=== PATIENT | male | born 1935 | race Caucasian/White ===

== ENCOUNTER 2016-09-11 11:46 | Inpatient (IN) | payer OTHER ==
[~2016-09-11] VITALS: Ht 170.2 cm; Wt 65.3 kg
--- NOTE | ~2016-09-11 | EKG ---
[address] [place] [address] ELECTROCARDIOGRAM REPORT Name: MIRIAM GAMING Room #: 444-P ADM IN M.R.#: [id number] Admission: 09/11/16 Attend Phys: Garret Marin MD Discharge: Date of : 33 Report #: [id number] THIS REPORT FOR: //name// [facility] ED Test Date: 2016-09-11 Test Time: 12:25:47 Pat Name: MIRIAM GAMING Department: Room: 444 Gender: M Lead Technical Writer: Vanessa LANDRUM : 1935 Requested By: Nathan Van Order Number: [id number] MD: Aj Johnston Measurements Intervals [place] Rate: 90 P: 78 [place]: 167 QRS: -62 QRSD: 94 T: 84 QT: 339 QTc: 415 Interpretive Statements Sinus rhythm Inferior infarct, old Anterior infarct, old Compared to ECG 04/28/2015 20:51:04 Myocardial infarct finding now present Atrial fibrillation no longer present Electronically Signed On 09-12-2016 9:25:48 CDT by Aj Johnston [email or web address] <ELECTRONICALLY SIGNED> By: Aj Johnston MD, [facility] 09/12/16 0925 1225 1225 Aj Johnston MD, [facility] /EPI
--- NOTE | ~2016-09-11 | HC ---
[facility] [place] [address] CONSULTATION Name: MIRIAM GAMING Room #: 444-P ADM IN M.R.#: [id number] Admission: 09/11/16 Attend Phys: Garret Marin MD Discharge: Date of : 33 Report #: [id number] THIS REPORT FOR: //name// CC: Galileo Khan MD DATE OF SERVICE: 09/14/2016 TYPE OF REPORT: Pulmonary consultation. REFERRING PROVIDER: Galileo Samano M.D. REASON FOR CONSULTATION: Shortness of breath and COPD exacerbation. HISTORY OF PRESENT ILLNESS: Our group was asked to see the patient in consultation while hospitalized at [facility], a very pleasant 81-year-old male with a past pulmonary history significant for COPD. FEV1 most recently done in September of 2015 was 1.11 liters or 46% of predicted, also requiring supplemental oxygen. Had been having some increasing shortness of breath since a stent placed recently, exact location is unclear to me at this time. Denies any chest pain or palpitation but has some increasing cough with some sputum production. No fevers, chills or sweats. Because of increased symptoms, he presented to the emergency department 3 days ago and subsequently admitted for acute exacerbation of COPD and has had subsequently required 2-3 liters nasal cannula continuous airflow with some difficulty ambulating even short distance without becoming significantly short of breath, is on continued airway clearance therapy at this time. ALLERGIES: Include CITRUS, WATERMELON, TOMATO, NUTS, CANTALOUPE, LEVAQUIN and STATINS. PAST MEDICAL HISTORY: 1. COPD as described in HPI. 2. Atherosclerotic peripheral vascular disease and multiple stent placement including aortic and iliac stents and carotid stents. 3. History of pulmonary nodule status post wedge resection in August of 2008 and benign granuloma. 4. Hypertension. 5. Hyperlipidemia. 6. History of allergic rhinitis. OUTPATIENT MEDICATIONS: 1. Multivitamin. [facility] [address] [place] [address] CONSULTATION Name: MIRIAM GAMING Room #: 444-[facility] IN [facility].#: [id number] Admission: 09/11/16 Attend Phys: Garret Marin MD Discharge: Date of : 33 Report #: [id number] 2. Bystolic. 3. Diltiazem. 4. Xarelto. 5. Advair. 6. Spiriva. 7. ProAir. SOCIAL HISTORY: The patient is currently retired, ex-smoker. No significant alcohol consumption. FAMILY HISTORY: Significant for father had cancer and mother had colon cancer. REVIEW OF SYSTEMS: CONSTITUTIONAL: No fevers, chills or sweats. ENT: No upper respiratory congestion, rhinorrhea or dysphagia. CARDIOVASCULAR: Notes no significant chest pain or palpitations. Does have a history of peripheral vascular disease. GASTROINTESTINAL: No nausea, vomiting, diarrhea or constipation. Has some mild abdominal pain. GENITOURINARY: No dysuria. No frequency. INTEGUMENT: Denies any new rash. MUSCULOSKELETAL: Some recent claudication noted prior to stent placement. PHYSICAL EXAMINATION: VITAL SIGNS: Afebrile, pulse 80s, respiratory rate 20, blood pressure 145/65 and oxygen saturation 94% on 2 liters. GENERAL: This is a very pleasant elderly male, hard of hearing but no distress. ENT: Clear oropharynx. No thrush. NECK: Supple. No lymphadenopathy. LUNGS: Diminished with prolonged expiratory phase, diffuse expiratory wheezes noted throughout. CARDIOVASCULAR: Heart regular. No murmurs noted. ABDOMEN: Soft. Mild suprapubic tenderness noted. EXTREMITIES: Without edema. They are warm with slightly diminished pulses. LABORATORY DATA: White blood cell count 11,000; hemoglobin 13; hematocrit 39 and platelet count 194. Sodium 141, potassium 3.7, chloride 107, bicarbonate 26, BUN 16, creatinine 1.0 and glucose 180. INR 1.0. RADIOLOGICAL DATA: Chest x-ray revealed hyperinflation consistent with COPD and emphysema, significant findings of bolus emphysema. Recent CT scan of the chest PE protocol revealed no PE, significant pulmonary embolism noted, some mild patchy ground glass changes suggestive of an inflammatory process noted. Cultures are negative. IMPRESSION: [facility] [address] [place] [address] CONSULTATION Name: MIRIAM GAMING Room #: 444-P ADM IN M.R.#: [id number] Admission: 09/11/16 Attend Phys: Garret Marin MD Discharge: Date of : 33 Report #: [id number] 1. Acute exacerbation of chronic obstructive pulmonary disease. 2. Ijppu-yt-lwojlih hypoxemic respiratory failure. 3. Pulmonary infiltrates consistent with community-acquired pneumonia. SUGGESTIONS: 1. Continue with airway clearance. The patient is obviously having some difficulty clearing secretions from his airway, likely due to thick secretions. We will change guaifenesin from p.r.n. to scheduled twice daily. 2. Continue with DuoNeb q. 4 hours. 3. Systemic steroids with taper. 4. Mobilize as able. 5. Continue with flutter valve, consider adding additional airway clearance including IPV. 6. Continue with current antibiotic therapy and we would consider deescalating. 7. Additional recommendations to follow. Thank you for requesting our suggestions. By: 1656 1802 Christopher Gill MD /ebony
[~2016-09-11 11:46] MED LIST: ADULT LOW DOSE81 MG PO; ADVAIR 250-501 EACH INH; ADVAIRDISKUS; AMLODIPINE BESY10 MG PO; AUGMENTIN 875-1 EACH PO; BYSTOLIC 5 MG5 M1 PO; CARDIZEM CD120 MG PO; COLACE100 MG PO; DAILY VITAMIN1 EAC5 PO; LEVAQUIN 500 M500 M2 PO; LIPITOR20 MG PO; MUCINEX TA600 MG/TA2 PO; NORVASC10 MG PO; NYSTATIN 1100000 U/M SW&SWALLOW; PACERONE 200 M200 M1 PO; PLAVIX 75 MG TA75 MG PO; PREDNISONE 10 M10 MG; PREDNISONE 10 M10 MG PO; PREDNISONE 20 M20 MG PO; PROAIR HFA8.5 GM INH; PROVENTIL HFA6.7 G1 INH; SPIRIVA INH; TYLENOL325 MG PO; XARELTO15 MG PO; ZOCOR PO
[2016-09-11 11:50] VITALS: BP 140/83
[2016-09-11 12:28] LABS: HEMATOCRIT 46.5 % (42.0-52.0); HEMOGLOBIN 15.5 gm/dL (14.0-18.0); MCH 31.4 pg (26.0-34.0); MCHC 33.4 g/dL (28.0-37.0); MCV 94.1 fL (80.0-100.0); RBC 4.93 mil/uL (4.50-6.00); WBC 11.6 thou/uL (4.0-11.0)
[2016-09-11 12:47] LABS: ANION GAP 11 mmol/L (7-16); BUN 14 mg/dL (7-18); CALCIUM 8.7 mg/dL (8.5-10.1); CHLORIDE 101 mmol/L (98-107); CO2 23 mmol/L (21-32); CREATININE 0.9 mg/dL (0.7-1.3); GLUCOSE 106 mg/dL (74-106); MANUAL DIFF YES; SODIUM 135 mmol/L (136-145)
[2016-09-11 12:52] LABS: ALBUMIN 3.5 g/dL (3.4-5.0); ALKALINE PHOSPHATASE 118 U/L (46-116); NT-PRO BRAIN NAT PEPTIDE 262 pg/mL (<300); SGOT 32 U/L (15-37); SGPT 21 U/L (30-65); TOTAL PROTEIN 7.8 g/dL (6.4-8.2); TROPONIN-I < 0.04 ng/mL (<0.04-0.07)
[2016-09-11 13:53] LABS: ABSOLUTE NEUTROPHILS 9.7 thou/uL (1.4-8.2); TOTAL CELL COUNT 100
[2016-09-11 13:59] LABS: PLATELET COUNT 66 thou/uL (150-400)
[2016-09-11] MEDS ORDERED: BREO ELLIPTA 21 EACH IH (15:55)
[2016-09-11 16:30] VITALS: BP 132/70
[2016-09-11 17:23] VITALS: BP 146/74
[2016-09-11 18:43] LABS: INR 1.1; PROTIME 11.5 Seconds (9.3-11.4)
[2016-09-11 19:55] VITALS: BP 124/64
[2016-09-12 04:10] VITALS: BP 138/74
[2016-09-12 04:15] LABS: HEMATOCRIT 39.8 % (42.0-52.0); HEMOGLOBIN 13.9 gm/dL (14.0-18.0); MCH 32.1 pg (26.0-34.0); MCHC 34.9 g/dL (28.0-37.0); RBC 4.32 mil/uL (4.50-6.00); RDW 13.9 % (10.5-14.5); WBC 10.1 thou/uL (4.0-11.0)
[2016-09-12 04:29] LABS: CALCIUM 8.5 mg/dL (8.5-10.1); CREATININE 0.8 mg/dL (0.7-1.3)
[2016-09-12 04:32] LABS: POTASSIUM 3.7 mmol/L (3.5-5.1)
[2016-09-12 08:00] VITALS: BP 142/75
[2016-09-12 16:00] VITALS: BP 129/60
[2016-09-12 20:00] VITALS: BP 123/68
[2016-09-13 04:10] VITALS: BP 131/58
[2016-09-13 08:00] VITALS: BP 132/55
[2016-09-13 16:00] VITALS: BP 127/62
[2016-09-13 20:27] VITALS: BP 117/55
[2016-09-14 03:40] VITALS: BP 142/57
[2016-09-14 08:00] VITALS: BP 145/65
[2016-09-14 11:32] LABS: HEMATOCRIT 38.6 % (42.0-52.0); HEMOGLOBIN 12.7 gm/dL (14.0-18.0); MCH 30.9 pg (26.0-34.0); MCHC 32.9 g/dL (28.0-37.0); MCV 93.9 fL (80.0-100.0); RBC 4.11 mil/uL (4.50-6.00); RDW 14.2 % (10.5-14.5); WBC 11.2 thou/uL (4.0-11.0)
[2016-09-14 11:56] LABS: CALCIUM 8.3 mg/dL (8.5-10.1); POTASSIUM 3.7 mmol/L (3.5-5.1)
[2016-09-14 19:15] VITALS: BP 147/65
[2016-09-15 04:10] VITALS: BP 155/71
[2016-09-15 08:34] VITALS: BP 175/79
[2016-09-15 15:42] VITALS: BP 149/74
[2016-09-15 19:30] VITALS: BP 145/60
[2016-09-16 04:20] VITALS: BP 151/76
[2016-09-16 08:00] VITALS: BP 147/92
[2016-09-16 11:19] LABS: ANION GAP 8 mmol/L (7-16); BUN 19 mg/dL (7-18); CALCIUM 8.4 mg/dL (8.5-10.1); CHLORIDE 103 mmol/L (98-107); CO2 29 mmol/L (21-32); CREATININE 0.9 mg/dL (0.7-1.3); GLUCOSE 166 mg/dL (74-106); POTASSIUM 3.8 mmol/L (3.5-5.1); SODIUM 140 mmol/L (136-145); TROPONIN-I < 0.04 ng/mL (<0.04-0.07)
[2016-09-16 16:16] VITALS: BP 144/71
[2016-09-16 19:23] VITALS: BP 159/7
[2016-09-17 05:06] VITALS: BP 160/86
[2016-09-17 09:35] VITALS: BP 149/81
[2016-09-17 16:17] VITALS: BP 139/67
[2016-09-17 20:02] VITALS: BP 148/76
[2016-09-18 04:57] VITALS: BP 157/69
[2016-09-18 08:30] VITALS: BP 145/80
[2016-09-18 11:06] VITALS: BP 157/69
[2016-09-18] MEDS ORDERED: AUGMENTIN 500-1 EACH PO (13:20)
[2016-09-18] MEDS ORDERED: PREDNISONE10 MG PO (13:22)
== END 2016-09-18 15:45 | disposition home or self-care (01) | DRG 177 ==
LOC: ER 11:46 → 4S 15:56 → EROBS 15:56 → 4S 16:55
PROVIDERS: Hospitalist; Internal Medicine; Physician Assistant
DX: J69.0 Pneumonitis due to inhalation of food and vomit (principal); J96.21 Acute and chronic respiratory failure with hypoxia; J44.1 Chronic obstructive pulmonary disease with (acute) exacerbation; Z96.1 Presence of intraocular lens; I48.0 Paroxysmal atrial fibrillation; I50.9 Heart failure, unspecified; I10 Essential (primary) hypertension; I73.9 Peripheral vascular disease, unspecified; E78.5 Hyperlipidemia, unspecified; Z98.42 Cataract extraction status, left eye; Z98.41 Cataract extraction status, right eye; Z95.5 Presence of coronary angioplasty implant and graft; Z79.899 Other long term (current) drug therapy; Z88.8 Allergy status to other drugs, medicaments and biological substances; Z91.018 Allergy to other foods; Z80.0 Family history of malignant neoplasm of digestive organs; Z87.891 Personal history of nicotine dependence
CPT/HCPCS: 10100

== ENCOUNTER 2016-11-09 08:45 | Emergency (ER) | payer OTHER ==
[~2016-11-09] VITALS: Ht 177.8 cm; Wt 68.0 kg
--- NOTE | ~2016-11-09 | EKG ---
[place] [address] [place] [address] ELECTROCARDIOGRAM REPORT Name: MIRIAM GAMING [id number] Admission: 11/09/16 Attend Phys: Discharge: Date of : 33 Report #: [id number] THIS REPORT FOR: //name// [facility] ED Test Date: 2016-11-09 Test Time: 09:07:22 Pat Name: MIRIAM GAMING Department: Room: Gender: Curator Of Collections: RUST : 1935 Requested By: Franci Jacobs Order Number: [id number] MD: Francisco Javier Mcgee Measurements Intervals [place] Rate: 67 P: 72 [place]: 164 QRS: -36 QRSD: 96 T: 65 QT: 423 QTc: 447 Interpretive Statements Sinus rhythm Anterior infarct, old Compared to ECG 09/11/2016 12:25:47 No significant changes Electronically Signed On 11-09-2016 11:02:08 CDT by Francisco Javier Mcgee [email or web address] <ELECTRONICALLY SIGNED> By: Francisco Javier Mcgee MD 11/09/16 1102 0907 6 Francisco Javier Mcgee MD /JANICE
[~2016-11-09 08:45] MED LIST changes: +AUGMENTIN 500-1 EACH PO; +BREO ELLIPTA 21 EACH IH; +PREDNISONE10 MG PO
[2016-11-09 09:40] LABS: ABSOLUTE NEUTROPHILS 5.6 thou/uL (1.4-8.2); BASOPHILS 0.8 % (0.0-2.0); EOSINOPHILS 2.6 % (0.0-3.0); HEMATOCRIT 43.1 % (42.0-52.0); HEMOGLOBIN 14.6 gm/dL (14.0-18.0); LYMPHOCYTES 21.5 % (24.0-44.0); MONOCYTES 7.2 % (1.0-8.0); PLATELET COUNT 223 thou/uL (150-400); POLYS 67.9 % (36.0-66.0); RBC 4.58 mil/uL (4.50-6.00); RDW 13.9 % (10.5-14.5); WBC 8.2 thou/uL (4.0-11.0)
[2016-11-09 09:49] LABS: MANUAL DIFF NO
[2016-11-09 09:53] LABS: ANION GAP 9 mmol/L (7-16); BUN 10 mg/dL (7-18); CALCIUM 8.7 mg/dL (8.5-10.1); CHLORIDE 106 mmol/L (98-107); CO2 27 mmol/L (21-32); CREATININE 0.9 mg/dL (0.7-1.3); GLUCOSE 105 mg/dL (74-106); POTASSIUM 4.3 mmol/L (3.5-5.1); SODIUM 142 mmol/L (136-145)
[2016-11-09 10:02] LABS: INR 1.1; PROTIME 10.8 Seconds (9.3-11.4)
[2016-11-09 10:03] LABS: ALBUMIN 3.4 g/dL (3.4-5.0); ALKALINE PHOSPHATASE 119 U/L (46-116); SGOT 17 U/L (15-37); SGPT 19 U/L (30-65); TOTAL BILIRUBIN 0.5 mg/dL (<0.1-1.0); TROPONIN-I < 0.04 ng/mL (<0.04-0.07)
[2016-11-09] MEDS ORDERED: PREDNISONE 20 M20 MG PO (11:32)
== END 2016-11-09 11:43 | disposition home or self-care (01) ==
LOC: ER 08:45
PROVIDERS: Physician Assistant
DX: J44.1 Chronic obstructive pulmonary disease with (acute) exacerbation (principal); I11.0 Hypertensive heart disease with heart failure; I50.9 Heart failure, unspecified; I48.0 Paroxysmal atrial fibrillation; Z88.8 Allergy status to other drugs, medicaments and biological substances; Z91.018 Allergy to other foods

== ENCOUNTER 2017-02-06 07:53 | Inpatient (IN) | payer OTHER ==
[~2017-02-06] VITALS: Ht 172.7 cm; Wt 66.2 kg
[2017-02-06] VITALS (7 sets, daily range): BP systolic 136–174; BP diastolic 67–88
--- NOTE | ~2017-02-06 | HC ---
[facility] [place] [address] CONSULTATION Name: MIRIAM GAMING Room #: 434-P [facility] IN M.R.#: [id number] Admission: 02/06/17 Attend Phys: Ramin Rodriguez Discharge: Date of : 33 Report #: [id number] THIS REPORT FOR: //name// CC: Ramin Matias DATE OF SERVICE: 02/10/2017 HISTORY OF PRESENT ILLNESS: The patient is an 82-year-old white male who was admitted with worsening shortness of breath. He has a prior history of asthma. He was diagnosed with qdjyf-vj-nmdjdgd respiratory failure, exacerbation of chronic obstructive pulmonary disease. Noted to have a rhinovirus. Per discussion with Pulmonary Medicine, he remains quite tight and is needing assistance with basic functional mobility and we are seeing him in rehabilitation medicine consultation. PAST MEDICAL HISTORY: Includes COPD, history of peripheral arterial disease, atrial fibrillation. He has had a prior right thoracotomy for resection of a lung mass 08/28. Apparently noted to be granuloma. History of atrial fibrillation, congestive heart failure. ALLERGIES: Cantaloupe citrus and derivatives, nuts, watermelon, tomato. MEDICATIONS: Please see the full medication listing. HABITS: Former smoker, quit greater than a year ago. No history of alcohol abuse. SOCIAL HISTORY: Lives in a house with his and son, 2-3 steps in, who was on 3 liters nasal prong O2. Did not utilize gait aids. He was going for outpatient pulmonary rehabilitation. REVIEW OF SYSTEMS: Notes that he remains tight as far as his lungs. No current complaints of chest pain or abdominal discomfort. No focal extremity pain complaints. PHYSICAL EXAMINATION: GENERAL: An 82-year-old white male, pleasant, in no obvious distress, currently on 3 liters nasal prong O2. Facies are symmetric. He is alert, pleasant, oriented. HEENT: Appeared to be benign. Cranial nerves are grossly intact. EXTREMITIES: He has functional range of motion of both upper extremities with strength grade 4/5. DTRs are trace to 1. Lower extremities, no focal calf swelling, functional range of motion with strength grade 4-/5. DTRs are trace to 1. Lower extremity dressing is min assist. Toilet transfers are supervision. Bathing is min assist. He becomes severely short of breath with [facility] [address] [place] [address] CONSULTATION Name: MIRIAM GAMING Room #: [facility] IN .R.#: [id number] Admission: 02/06/17 Attend Phys: Ramin Rodriguez Discharge: Date of : 33 Report #: [id number] attempted limited ADLs. ASSESSMENT: An 82-year-old white male with the following problem list: 1. Pulmonary rehabilitation. 2. Medical complexity with generalized debilitation. 3. Wzgig-is-nohjszq respiratory failure. 4. Chronic obstructive pulmonary disease exacerbation. 5. Acute bronchitis. 6. Asthma. 7. History of right thoracotomy with wedge resection of a lung mass noted to be a granuloma. 8. Peripheral arterial disease. 9. History of congestive heart failure. 10. Paroxysmal atrial fibrillation. PLAN: Discussion with Pulmonary Medicine. They have recommended that we assess this patient for a short acute in-hospital inpatient rehabilitation stay. He still has significant tightness. From a pulmonary perspective and is needing assistance with basic functional mobility and ADLs and is very limited as far as his functional abilities and need for rest breaks. Physical therapy is to evaluate and he has already been seen by occupational therapy. Insurance will be checked regarding a short acute in-hospital inpatient rehabilitation stay. Would anticipate a short stay of probably 5-7 days where he could obtain the rehabilitation that he needs and Pulmonary Medicine could continue to follow along with him to help further maximize his recovery. We will be glad to follow along with you regarding his rehab therapy needs. By: 1115 1213 Kan Jerez MD /ZAC
--- NOTE | ~2017-02-06 | EKG ---
[place] [address] [facility] [place] [address] ELECTROCARDIOGRAM REPORT Name: MIRIAM GAMING Room #: 434-P ADM IN M.R.#: [id number] Admission: 02/06/17 Attend Phys: Ramin Rodriguez Discharge: Date of : 33 Report #: [id number] THIS REPORT FOR: //name// [facility] ED Test Date: 2017-02-06 Test Time: 08:17:09 Pat Name: MIRIAM GAMING Department: Room: 434 Gender: M Air Compressor Mechanic: jose : 1935 Requested By: Leroy Gonzalez Order Number: [id number] MD: Aj Johnston Measurements Intervals [place] Rate: 86 P: 83 [place]: 172 QRS: -74 QRSD: 93 T: 87 QT: 369 QTc: 442 Interpretive Statements Sinus rhythm Left anterior fascicular block Anterior infarct, old Nonspecific T abnormalities, lateral leads Compared to ECG 11/09/2016 09:07:22 Left anterior fascicular block now present Electronically Signed On 02-07-2017 8:23:53 GAMING SURVEILLANCE OBSERVER by Aj Johnston [email or web address] <ELECTRONICALLY SIGNED> By: Aj Johnston MD, [facility] 02/07/1723 6 6 Aj Johnston MD, [facility] /EPI
--- NOTE | ~2017-02-06 | EKG ---
[place] [address] [facility] [place] [address] ELECTROCARDIOGRAM REPORT Name: MIRIAM GAMING Room #: 434-P ADM IN M.R.#: [id number] Admission: 02/06/17 Attend Phys: Ramin Rodriguez Discharge: Date of : 33 Report #: [id number] THIS REPORT FOR: //name// [facility] Test Date: 2017-02-10 Test Time: 09:13:10 Pat Name: MIRIAM GAMING Department: Room: 434 P Gender: M Nurse Anesthetist: DEWAYNE : 1935 Requested By: Ivan Polanco Order Number: [id number] MD: Aj Johnston Measurements Intervals [place] Rate: 77 P: 82 [place]: 165 QRS: -37 QRSD: 92 T: 50 QT: 414 QTc: 469 Interpretive Statements Sinus rhythm Ventricular premature complex Left axis deviation Anterior infarct, old Compared to ECG 02/06/2017 08:17:09 Ventricular premature complex(es) now present Electronically Signed On 02-10-2017 14:28:47 VEHICLE RETURN ASSOCIATE by Aj Johnston [email or web address] <ELECTRONICALLY SIGNED> By: Aj Johnston MD, [facility] 02/10/17 1428 2 Aj Johnston MD, [facility] /EPI
[2017-02-06 08:14] LABS: HEMATOCRIT 49.7 % (42.0-52.0); HEMOGLOBIN 16.6 gm/dL (14.0-18.0); MCH 30.9 pg (26.0-34.0); MCHC 33.5 g/dL (28.0-37.0); MCV 92.5 fL (80.0-100.0); RBC 5.37 mil/uL (4.50-6.00); RDW 14.2 % (10.5-14.5); WBC 10.1 thou/uL (4.0-11.0)
[2017-02-06 08:21] LABS: ANION GAP 9 mmol/L (7-16); BUN 12 mg/dL (7-18); CALCIUM 9.1 mg/dL (8.5-10.1); CHLORIDE 105 mmol/L (98-107); CO2 28 mmol/L (21-32); CREATININE 0.9 mg/dL (0.7-1.3); GLUCOSE 133 mg/dL (74-106); POTASSIUM 4.4 mmol/L (3.5-5.1); SODIUM 142 mmol/L (136-145)
[2017-02-06 08:29] LABS: TROPONIN-I < 0.04 ng/mL (<0.06)
[2017-02-06 11:15] LABS: ABG SAMPLE TYPE ARTERIAL; BE(vivo) 0.1 mmol/L (-2 to +3); HCO3 24.7 mmol/L (22.0-26.0); LACTATE 1.32 mmol/L (0.5-2.0); O2Hb 96.1 % (92.0-98.0); PCO2 40.1 mmHg (35.0-45.0); PO2 93.6 mmHg (80.0-100.0); pH 7.407 (7.360-7.450); sO2 97.2 % (92.0-98.0); tCO2 25.9 mmol/L (24.0-30.0)
[2017-02-06 11:16] LABS: ABG COMMENT NO COMPLICATIONS; STICK SITE R.RADIAL
[2017-02-07 00:46] VITALS: BP 148/80
[2017-02-07 06:18] VITALS: BP 166/79
[2017-02-07 08:00] VITALS: BP 163/77
[2017-02-07 16:00] VITALS: BP 134/59
[2017-02-07 20:11] VITALS: BP 147/71
[2017-02-08 03:32] VITALS: BP 146/67
[2017-02-08 07:49] VITALS: BP 159/79
[2017-02-08 16:09] VITALS: BP 144/68
[2017-02-08 21:00] VITALS: BP 171/67
[2017-02-09 01:11] LABS: INFLUENZA B Negative (Negative); METAPNEUMOVIRUS Negative (Negative)
[2017-02-09 04:27] VITALS: BP 154/67
[2017-02-09 08:09] VITALS: BP 171/73
[2017-02-09 15:55] VITALS: BP 144/68
[2017-02-09 20:00] VITALS: BP 154/83
[2017-02-10 05:05] VITALS: BP 180/94
[2017-02-10 07:00] VITALS: BP 182/97
[2017-02-10 15:57] LABS: HEMATOCRIT 45.4 % (42.0-52.0); HEMOGLOBIN 15.4 gm/dL (14.0-18.0); MCHC 33.9 g/dL (28.0-37.0); MCV 91.3 fL (80.0-100.0); RBC 4.98 mil/uL (4.50-6.00); RDW 14.4 % (10.5-14.5); WBC 10.3 thou/uL (4.0-11.0)
[2017-02-10 16:13] LABS: CALCIUM 8.6 mg/dL (8.5-10.1); CREATININE 0.9 mg/dL (0.7-1.3); POTASSIUM 3.7 mmol/L (3.5-5.1); TOTAL BILIRUBIN 0.4 mg/dL (<0.1-1.0); TOTAL PROTEIN 6.4 g/dL (6.4-8.2)
[2017-02-10 16:40] VITALS: BP 150/68
[2017-02-10 19:27] VITALS: BP 160/77
[2017-02-11 04:08] VITALS: BP 171/74
[2017-02-11 07:05] VITALS: BP 170/76
[2017-02-11] MEDS ORDERED: LEVAQUIN 500 M500 M2 PO (15:24)
[2017-02-11] MEDS ORDERED: ACETAMINOPHEN325 M1 PO (15:25)
[2017-02-11] MEDS ORDERED: CARDIZEM CD 18180 M3 PO (15:25)
[2017-02-11] MEDS ORDERED: HYDROCODON-ACE1 EAC7 PO (15:25)
[2017-02-11] MEDS ORDERED: AMBIEN 5 MG TABL5 M1 PO (15:26)
[2017-02-11] MEDS ORDERED: PULMICORT0.5 MG/21 INH (15:26)
[2017-02-11] MEDS ORDERED: SOLU-MEDRO40 MG/1 M2 IV PUSH (15:26)
[2017-02-11 15:30] VITALS: BP 138/60
[2017-02-11 19:59] VITALS: BP 176/91
== END 2017-02-11 18:59 | DRG 871 ==
LOC: ER 07:53 → 4S 08:31 → EROBS 08:31 → 4S 09:46
PROVIDERS: Emergency Medicine; Internal Medicine Pulmonary Disease
DX: A41.9 Sepsis, unspecified organism (principal); J96.21 Acute and chronic respiratory failure with hypoxia; J44.1 Chronic obstructive pulmonary disease with (acute) exacerbation; I50.9 Heart failure, unspecified; I48.0 Paroxysmal atrial fibrillation; I73.9 Peripheral vascular disease, unspecified; I11.0 Hypertensive heart disease with heart failure; J20.9 Acute bronchitis, unspecified; B34.8 Other viral infections of unspecified site; Z98.42 Cataract extraction status, left eye; Z98.41 Cataract extraction status, right eye; Z95.820 Peripheral vascular angioplasty status with implants and grafts; Z87.891 Personal history of nicotine dependence; Z79.899 Other long term (current) drug therapy; Z88.8 Allergy status to other drugs, medicaments and biological substances; Z91.018 Allergy to other foods
CPT/HCPCS: 10100

== ENCOUNTER 2017-02-11 12:59 | Inpatient (IN) | payer OTHER ==
[~2017-02-11] VITALS: Ht 175.3 cm; Wt 68.7 kg
--- NOTE | ~2017-02-11 | PLAN ---
[facility] [place] [address] [place] [address] REHAB UNIT PLAN OF CARE Name: MIRIAM GAMING Room #: 503-P [facility] IN M.R.#: [id number] Admission: 02/11/17 Attend Phys: Kan Jerez MD Discharge: 02/16/17 Date of : 33 Report #: [id number] THIS REPORT FOR: //name// CC: Kan [facility] DATE OF SERVICE: 02/14/2017 The patient is seen back today in followup. He is in no distress. Last recorded temperature 97.5, pulse 56, respirations 22, blood pressure 166/86. The patient is alert, pleasant. HEENT appeared to be benign. He is on 3 liters nasal prong O2. No focal calf swelling. He is working in therapies with transfers, min assist. Gait min assist without a device. He has been working on increasing endurance. ASSESSMENT: 1. Pulmonary rehabilitation. 2. Medical complexity with generalized debilitation. 3. Acute on chronic respiratory failure. 4. Chronic obstructive pulmonary disease exacerbation. 5. Acute bronchitis. 6. Asthma. 7. History of right thoracotomy with wedge resection of a lung mass noted to be a granuloma. 8. Peripheral arterial disease. 9. History of congestive heart failure. 10. Paroxysmal atrial fibrillation. PLAN: The overall plan of care is based on the preadmission screen, post-admission physician evaluation and information garnered from therapy assessments. 1. Estimated length of stay is fairly short. We will team with the rehabilitation interdisciplinary team today and further assess. 2. Medical prognosis is reasonably good. 3. Anticipated interventions includes the interdisciplinary acute inpatient rehabilitation program. 4. Anticipated functional outcomes would be for the patient to further improve as far as strength, endurance, balance and to decrease the need for rest breaks so we get him back to the home setting. 5. Discharge destination would be back home as noted above. He does live in a house with his and son. 6. Expected therapy by discipline includes PT and OT 1 and 1-1/2 hours per day [address] [address] REHAB UNIT PLAN OF CARE Name: MIRIAM GAMING Room #: 503-P [facility] IN M.R.#: [id number] Admission: 02/11/17 Attend Phys: Kan Jerez MD Discharge: 02/16/17 Date of : 33 Report #: [id number] each five days a week throughout the duration of the acute inpatient rehabilitation stay. <ELECTRONICALLY SIGNED> By: Kan Jerez MD 02/16/17 1647 1031 1105 Kan Jerez MD /[facility]
--- NOTE | ~2017-02-11 | H ---
[facility] [place] [address] HISTORY AND PHYSICAL Name: MIRIAM GAMING Room #: 503-P [facility] IN M.R.#: [id number] Admission: 02/11/17 Attend Phys: Kan Jerez MD Discharge: 02/16/17 Date of : 33 Report #: [id number] THIS REPORT FOR: //name// CC: Kan Bassabdulkadir DATE OF SERVICE: 02/11/2017 HISTORY AND PHYSICAL/POST-ADMISSION PHYSICIAN EVALUATION HISTORY OF PRESENT ILLNESS: The patient is an 82-year-old male who was originally admitted to [facility] on 02/06/2017 with worsening shortness of breath. He has a prior history of asthma. He was diagnosed with rrtrq-ak-epvsjrj respiratory failure and exacerbation of COPD. He was noted to have a rhinovirus. Per discussion with Pulmonary Medicine, he remained quite tight and was needing assistance with basic functional mobility and ADL issues. He was noted to have a significant functional decline. He was needing continuous O2 and has not progressed from the pulmonary perspective as he typically has in the past. The patient is debilitated and has pulmonary rehabilitation needs, and has been admitted now for acute in-hospital inpatient rehabilitation. PAST MEDICAL HISTORY: Includes COPD, history of peripheral arterial disease, and atrial fibrillation. He had a prior right thoracotomy for resection of a lung mass on 08/28/2016. This was apparently noted to be a granuloma. History of atrial fibrillation and congestive heart failure. ALLERGIES: CANTALOUPE, CITRUS AND DERIVATIVES, NUTS, WATERMELON, AND TOMATO. MEDICATIONS: Please see the full medication listing. Each of these was individually reconciled and includes vitamins, herbals, and supplements. HABITS: Former smoker, quit greater than a year ago. No history of alcohol abuse. SOCIAL HISTORY: He lives in a house with and son, 2-3 steps in. He was on 3 liters nasal prong O2. He did not utilize gait aids. He was going for outpatient pulmonary rehabilitation. REVIEW OF SYSTEMS: The patient was seen yesterday. He had complaints as far as being tight in his lungs. No chest pain or shortness of breath. No focal extremity pain complaints. PHYSICAL EXAMINATION: GENERAL: An 82-year-old white male who was in no distress. Facies bases were symmetric. He was alert, pleasant. [address] [address] HISTORY AND PHYSICAL Name: MIRIAM GAMING Room #: [address] [place] [address] IN M.R.#: [id number] Admission: 02/11/17 Attend Phys: Kan Jerez MD Discharge: 02/16/17 Date of : 33 Report #: [id number] VITAL SIGNS: Last recorded temperature is 98.4, pulse 62, respirations 26, blood pressure 152/85. He has been on oxygen 3 liters. HEENT: Appeared to be benign. CHEST: Decreased breath sounds throughout. CARDIOVASCULAR: Regular rate and rhythm. ABDOMEN: Bowel sounds positive, nontender. GENITOURINARY AND RECTAL: Deferred. EXTREMITIES: Functional range of motion of both upper extremities with strength grade 4/5. DTRs were trace to 1. Lower extremities, no focal calf swelling, functional range of motion with strength grade 4-/5. DTRs trace to 1. Lower extremity dressing was min assist. Toilet transfers were supervision. Bathing was min assist. He has had problems with severe shortness of breath with limited attempted ADLs. ASSESSMENT: An 82-year-old white male with the following problem list: 1. Pulmonary rehabilitation. 2. Medical complexity with generalized debilitation. 3. Acute on chronic respiratory failure. 4. Chronic obstructive pulmonary disease exacerbation. 5. Acute bronchitis. 6. Asthma. 7. History of right thoracotomy with wedge resection of a lung mass noted to be a granuloma. 8. Peripheral arterial disease. 9. History of congestive heart failure. 10. Paroxysmal atrial fibrillation. PLAN: The patient was admitted for acute in-hospital inpatient rehabilitation. From a postadmission physician evaluation perspective, there are no relevant changes since the preadmission screening. Please see the above review of prior and current medical and functional conditions and comorbidities. Please see the patient's previous and current functional status. As far as risk of complications, the patient has multiple medical comorbidities as noted above. Initial plan of care involves the interdisciplinary acute inpatient rehabilitation program with the goal of maximizing the patient's functional independence, so hopefully he can return back to his prior living situation. Measurable functional goals would be for the patient to become modified independent with transfers, mobility and ADLs, so that he can return back to the home setting. Prognosis is reasonably good. I am hoping for just a short length of stay of probably 5-7 days to get him up moving, better, and back home. We will need to see how he further progresses in need to have pulmonary [facility] [address] [place] [address] HISTORY AND PHYSICAL Name: MIRIAM GAMING Room #: 503-P [facility] IN M.R.#: [id number] Admission: 02/11/17 Attend Phys: Kan Jerez MD Discharge: 02/16/17 Date of : 33 Report #: [id number] medicine involvement. Potential barriers would include primarily his pulmonary condition as well as his above noted medical comorbidities. <ELECTRONICALLY SIGNED> By: Kan Jerez MD 02/16/17 1647 1022 1050 Kan Jerez MD /PMT
--- NOTE | ~2017-02-11 | HC ---
[facility] [place] [address] CONSULTATION Name: MIRIAM GAMING Room #: 503-P [facility] IN M.R.#: [id number] Admission: 02/11/17 Attend Phys: Kan Jerez MD Discharge: 02/16/17 Date of : 33 Report #: [id number] THIS REPORT FOR: //name// CC: Kan Jerez [facility] DATE OF SERVICE: 02/15/2017 Neurobehavioral Status Exam: ATTENDING PHYSICIAN: Kan Jerez MD. TRANSPORTATION AID: Fermin Quinones, PhD. CLINICAL PRESENTATION: The patient is an 82-year-old male admitted to the rehabilitation unit at [facility] for comprehensive inpatient rehabilitation program to improve functional mobility, activities of daily living and self-care and mental status secondary to medical complexity and generalized debility. His assessment on admission includes acute on chronic respiratory failure, chronic obstructive pulmonary disease exacerbation, acute bronchitis, asthma, history of right thoracotomy with a wedge resection of a lung mass, there was noted to be a granuloma. Peripheral artery disease, history of congestive heart failure and paroxysmal atrial fibrillation. A complete description of his medical condition and history can be found in his medical record. Neuropsychological consultation was required to provide assistance in the assessment of cognitive and emotional status and to provide recommendations and services. Prior to this most recent admission, he was living independently at home with his . The patient is a high school graduate and also attended an acting school. 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 He has four children. His family is described as supportive. TECHNIQUES UTILIZED: Clinical interview, review of medical records, staff consultation and behavioral observation, mini mental status exam 2 standard version and clock drawing. EXAMINATION FINDINGS: The patient was alert and cooperative with the assessment. He accurately described events surrounding his admission. There is no evidence of aphasia. His thoughts are logical and goal oriented. There is no evidence of thought disorder. He does not report auditory or visual hallucinations. His mood is congenial and personable. Affect is somewhat euphoric. The patient reports subjective feelings of anxiety that are mild. He is mildly depressed in regard to inability to pursue the activities of former interest [facility] [address] [place] [address] CONSULTATION Name: MIRIAM GAMING Room #: 503-P [facility] IN M.R.#: [id number] Admission: 02/11/17 Attend Phys: Kan Jerez MD Discharge: 02/16/17 Date of : 33 Report #: [id number] that provided satisfaction and meaningful involvement because of his medical condition. His performance on the MMSE 2 brief version is within normal limits with a raw score of 14/16 and a T score of 45. He was 3/3 for initial registration, 5/5 for orientation to time and place. He was 1/3 correct for immediate recall of 3 items after a brief time delay and distraction. Performance on the MMSE 2 standard version was within normal limits with a raw score 25/30, which is a T score of 44. He was 2/5 for serial sevens, 2/2 for naming, 1/1 for repetition, 3/3 for comprehension, 1/1 for being able to read and follow a single command and write a sentence. He could also copy a simple geometric design. Clock drawing was within normal limits for both hand placement at the numbers and general visual spatial organization. 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 RECOMMENDATIONS: The patient reports having difficulty with his memory that has been somewhat frustrating. Current cognitive status is generally within normal limits with a subtle to mild impairment in memory that is suggested. The patient may benefit from a more thorough neuropsychological assessment approximately 30 days after his hospitalization to clarify cognitive status. His mood appears pleasant and engaging. Thank you very much for allowing me to provide the consultation on this patient. <ELECTRONICALLY SIGNED> By: Fermin Quinones, PhD 02/24/17 1836 1858 0030 Fermin Quinones, PhD /nt
[2017-02-11] MEDS ORDERED: LEVAQUIN 500 M500 M2 PO (15:24)
[2017-02-11] MEDS ORDERED: ACETAMINOPHEN325 M1 PO (15:25)
[2017-02-11] MEDS ORDERED: CARDIZEM CD 18180 M3 PO (15:25)
[2017-02-11] MEDS ORDERED: HYDROCODON-ACE1 EAC7 PO (15:25)
[2017-02-11] MEDS ORDERED: PULMICORT0.5 MG/21 INH (15:26)
[2017-02-11] MEDS ORDERED: AMBIEN 5 MG TABL5 M1 PO (15:26)
[2017-02-11] MEDS ORDERED: SOLU-MEDRO40 MG/1 M2 IV PUSH (15:26)
[2017-02-11 20:51] VITALS: BP 176/91
[2017-02-12 06:02] LABS: HEMATOCRIT 45.1 % (42.0-52.0); HEMOGLOBIN 15.2 gm/dL (14.0-18.0); MCH 30.9 pg (26.0-34.0); MCHC 33.8 g/dL (28.0-37.0); MCV 91.3 fL (80.0-100.0); RBC 4.93 mil/uL (4.50-6.00); WBC 8.5 thou/uL (4.0-11.0)
[2017-02-12 06:11] LABS: CALCIUM 8.6 mg/dL (8.5-10.1)
[2017-02-12 08:00] VITALS: BP 152/85
[2017-02-12 19:36] VITALS: BP 138/79
[2017-02-13 07:20] VITALS: BP 151/81
[2017-02-13 19:09] VITALS: BP 145/79
[2017-02-14 07:30] VITALS: BP 166/86
[2017-02-14 20:29] VITALS: BP 164/72
[2017-02-15 06:04] LABS: HEMATOCRIT 44.1 % (42.0-52.0); HEMOGLOBIN 14.7 gm/dL (14.0-18.0); MCH 30.6 pg (26.0-34.0); MCHC 33.4 g/dL (28.0-37.0); MCV 91.6 fL (80.0-100.0); PLATELET COUNT 162 thou/uL (150-400); RBC 4.82 mil/uL (4.50-6.00); RDW 14.3 % (10.5-14.5); WBC 8.9 thou/uL (4.0-11.0)
[2017-02-15 06:16] LABS: CALCIUM 7.9 mg/dL (8.5-10.1); POTASSIUM 4.4 mmol/L (3.5-5.1)
[2017-02-15 07:09] LABS: ABSOLUTE NEUTROPHILS 7.7 thou/uL (1.4-8.2)
[2017-02-15 07:15] VITALS: BP 167/81
[2017-02-15 19:59] VITALS: BP 138/73
[2017-02-16 08:25] VITALS: BP 173/73
[2017-02-16] MEDS ORDERED: AMBIEN 5 MG TABL5 M1 PO (09:28)
[2017-02-16] MEDS ORDERED: CARDIZEM CD 18180 M3 PO (09:28)
[2017-02-16 10:22] VITALS: BP 155/70
[2017-07-12] MEDS ORDERED: ALBUTEROL2.5 MG/31 INH (10:42)
[2017-07-12] MEDS ORDERED: CARDIZEM CD120 MG PO (10:43)
[2017-07-12] MEDS ORDERED: BREO ELLIPTA 11 EACH INH (10:43)
[2017-07-12] MEDS ORDERED: TOBRADEX EYE O3.5 GM OPHTHALMIC (10:45)
[2017-08-09] MEDS ORDERED: SYSTANE BALANCE10 ML OPHTHALMIC (15:07)
== END 2017-02-16 15:48 | disposition home or self-care (01) | DRG 947 ==
PROVIDERS: Family Medicine; Physical Medicine & Rehabilitation
DX: R53.81 Other malaise (principal); J96.21 Acute and chronic respiratory failure with hypoxia; J44.1 Chronic obstructive pulmonary disease with (acute) exacerbation; J44.0 Chronic obstructive pulmonary disease with (acute) lower respiratory infection; J20.9 Acute bronchitis, unspecified; I73.9 Peripheral vascular disease, unspecified; I48.0 Paroxysmal atrial fibrillation; G31.84 Mild cognitive impairment of uncertain or unknown etiology; I50.9 Heart failure, unspecified; L92.9 Granulomatous disorder of the skin and subcutaneous tissue, unspecified; Z91.018 Allergy to other foods; Z88.8 Allergy status to other drugs, medicaments and biological substances; Z87.891 Personal history of nicotine dependence
CPT/HCPCS: 10112

== ENCOUNTER → 2017-06-08 | Outpatient (CLI) | payer OTHER ==
[~2017-06-08] MED LIST changes: +ACETAMINOPHEN325 M1 PO; +AMBIEN 5 MG TABL5 M1 PO; +CARDIZEM CD 18180 M3 PO; +HYDROCODON-ACE1 EAC7 PO; +PULMICORT0.5 MG/21 INH; +SOLU-MEDRO40 MG/1 M2 IV PUSH
== END ==
LOC: MRI 05:56
DX: H53.47 Heteronymous bilateral field defects (principal)

== ENCOUNTER 2017-07-20 05:28 | Day surgery (SDC) | payer OTHER ==
[~2017-07-20] VITALS: Ht 177.8 cm; Wt 68.0 kg
--- NOTE | ~2017-07-20 | O ---
[facility] [place] [address] OPERATIVE REPORT Name: MIRIAM GAMING Room #: 150-8 [facility]..#: [id number] Admission: 07/20/17 Attend Phys: Isaac Pickett MD Discharge: Date of : 33 Report #: [id number] THIS REPORT FOR: //name// CC: Bryan Pickett Christopher Rivero MD DATE OF SERVICE: 07/20/2017 PREOPERATIVE DIAGNOSIS: Bilateral lower lid ectropion. POSTOPERATIVE DIAGNOSIS: Bilateral lower lid ectropion with right lower lid retraction. PROCEDURE: Bilateral lower lid ectropion repair with transconjunctival right lower lid and cheek lift. SURGEON: Isaac Pickett M.D. SEAM FINISHER: None. ANESTHESIA: MAC. COMPLICATIONS: None. 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 He presents today for a bilateral lower lid ectropion repair in order to improve his ocular surface milieu, quality of vision and level of comfort. Informed consent was obtained to include but not limited to the potential risk for loss of vision, bleeding, infection, failure to improve the problem, the potential need for further surgery or treatment. DESCRIPTION OF PROCEDURE: The patient was taken to the operating room where 2% Xylocaine with epinephrine mixed with equal parts of 0.75% Marcaine with Wydase was administered transcutaneously and transconjunctivally to each lower lid and lateral canthus. The patient was subsequently prepped and draped in the usual sterile fashion. A Pritesh clamp was then used to clamp the left lateral canthus following which a sharp canthotomy and cantholysis was performed. A tarsal strip was then prepared laterally removing the lash bearing portion of the redundant lid margin and the redundant tarsal plate. Hemostasis was once again re-achieved. The tarsal strip was then reattached to the internal portion of the lateral orbital tubercle with 2 interrupted 5-0 Prolene sutures. The [address] [address] OPERATIVE REPORT Name: MIRIAM GAMING Room #: 150-8 [facility]..#: [id number] Admission: 07/20/17 Attend Phys: Isaac Pickett MD Discharge: Date of : 33 Report #: [id number] and the skin were then closed with interrupted 6-0 plain gut sutures. Attention was then turned to the right side. The lateral canthus was clamped with a Pritesh clamp. A sharp canthotomy and cantholysis was subsequently performed. A tarsal strip was then prepared laterally removing the lash bearing portion of the redundant lid margin and the redundant tarsal plate. Hemostasis was once again re-achieved. The tarsal strip was then secured to the internal portion of the lateral orbital tubercle with interrupted 5-0 Prolene sutures. It was apparent that an ectropion repair alone was not going to be sufficient in order to improve the patient's lid position as the ectropion repair did not draw the lid high enough up on to the globe to protect the cornea. The decision was made to do a lower lid and cheek lift. The Prolene sutures previously placed were removed on the right side. A transconjunctival incision was then made below the inferior border of the tarsal plate and carried out into the premalar tissues. Hemostasis was re-achieved. Double arm passes of 5-0 chromic was then used to elevate the lower lid and cheek tissues in an elevated position. This lifted the lower lid and cheek well. Attention was then turned to completion of the ectropion repair. The tarsal strip was secured to the internal portion of the lateral orbital tubercle with interrupted 5-0 Prolene sutures. The subcutaneous structures and the skin was closed with interrupted 6-0 plain gut sutures. The patient was then transported to the recovery area having tolerated the procedure well with no anesthetic or operative complications being noted after erythromycin ophthalmic ointment was placed on the wound. By: 1237 1311 Isaac Pickett MD /nt
[~2017-07-20 05:28] MED LIST changes: +ALBUTEROL2.5 MG/31 INH; +BREO ELLIPTA 11 EACH INH; +TOBRADEX EYE O3.5 GM OPHTHALMIC
[2017-07-20 11:26] VITALS: BP 143/71
== END 2017-07-20 13:39 | disposition home or self-care (01) ==
LOC: OR 05:28 → TBA 05:29 → OR 13:39
DX: H02.105 Unspecified ectropion of left lower eyelid (principal); H02.102 Unspecified ectropion of right lower eyelid; H02.532 Eyelid retraction right lower eyelid; I11.0 Hypertensive heart disease with heart failure; I50.9 Heart failure, unspecified; J43.9 Emphysema, unspecified; I73.89 Other specified peripheral vascular diseases; I48.0 Paroxysmal atrial fibrillation; Z98.890 Other specified postprocedural states; Z79.899 Other long term (current) drug therapy; Z79.01 Long term (current) use of anticoagulants; Z87.01 Personal history of pneumonia (recurrent); Z95.5 Presence of coronary angioplasty implant and graft; Z87.891 Personal history of nicotine dependence; Z88.8 Allergy status to other drugs, medicaments and biological substances
CPT/HCPCS: 50010; 50101; 50386; 50398; 51636; 56527; 56531; 62110; 62850; 70005

== ENCOUNTER 2017-08-14 05:55 | Day surgery (SDC) | payer OTHER ==
[~2017-08-14] VITALS: Ht 172.7 cm; Wt 68.0 kg
--- NOTE | ~2017-08-14 | O ---
[facility] [place] [address] OPERATIVE REPORT Name: MIRIAM GAMING Room #: 150-6 [facility] M..#: [id number] Admission: 08/14/17 Attend Phys: Isaac Pickett MD Discharge: Date of : 33 Report #: [id number] THIS REPORT FOR: //name// CC: Dr. Yvonne Pickett DATE OF SERVICE: 08/14/2017 CAR AUDIO INSTALLER: None. PREOPERATIVE DIAGNOSIS: Bilateral upper lid ptosis with superior visual field defects both eyes. POSTOPERATIVE DIAGNOSIS: Bilateral upper lid ptosis with superior visual field defects both eyes. OPERATION PERFORMED: Bilateral upper lid functional ptosis repair. CAR AUDIO INSTALLER: None. ANESTHESIA: Local with IV sedation. COMPLICATIONS: None. INDICATIONS FOR PROCEDURE: This patient has bilateral upper lid ptosis with superior visual field loss both eyes. Visual field testing demonstrates dense superior visual defects. Retesting with the upper lid elevated shows an improvement in visual field loss of over 30% and in excess of 12 degrees. The current procedure is being undertaken in order to improve the patient's visual function. Informed consent was obtained to include but not limited to the risk of loss of vision, bleeding, infection, scarring, failure to improve the problem and need for further surgery, such as adjustment of lid height. DESCRIPTION OF PROCEDURE: The patient was taken to the operating room, where 2% Xylocaine with epinephrine mixed with equal parts of 0.75% Marcaine with Wydase was administered transcutaneously to each upper lid. The patient was then prepped and draped in the usual sterile fashion. An upper lid crease incision was then made bilaterally and the dissection was carried down until the orbital septum was identified. The orbital septum was then cleared and the preaponeurotic fat identified. The levator aponeurosis was then disinserted from the anterior surface of the tarsal plate and dissected [address] [address] OPERATIVE REPORT Name: MIRIAM GAMING Room #: 150-6 [facility].#: [id number] Admission: 08/14/17 Attend Phys: Isaac Pickett MD Discharge: Date of : 33 Report #: [id number] free in the avascular Orozco's muscle plane. The aponeurosis was then advanced and reattached to the anterior surface of the tarsal plate with interrupted mattress 6-0 Novafil sutures on each side, adjusting for height and contour. The redundant aponeurosis was then amputated. The incision was then closed with multiple interrupted 6-0 chromic sutures that were used to recreate an upper lid crease. The skin was closed with a running 6-0 plain gut suture. The wound was then cleaned and dressed with ophthalmic antibiotic ointment followed by a Telfa pad. The patient was transported to the recovery area, having tolerated the procedure well with no anesthesia or operative complications being noted. By: 1308 1325 MD edward Miller
[~2017-08-14 05:55] MED LIST changes: +SYSTANE BALANCE10 ML OPHTHALMIC
[2017-08-14 13:36] VITALS: BP 108/64
== END 2017-08-14 14:00 | disposition home or self-care (01) ==
LOC: OR 05:55 → TBA 05:56 → OR 14:00
DX: H02.403 Unspecified ptosis of bilateral eyelids (principal); H53.462 Homonymous bilateral field defects, left side; H53.461 Homonymous bilateral field defects, right side; I10 Essential (primary) hypertension; I73.89 Other specified peripheral vascular diseases; I48.91 Unspecified atrial fibrillation; J43.9 Emphysema, unspecified; I48.0 Paroxysmal atrial fibrillation; Z98.890 Other specified postprocedural states; Z96.1 Presence of intraocular lens; Z87.891 Personal history of nicotine dependence; Z98.42 Cataract extraction status, left eye; Z95.5 Presence of coronary angioplasty implant and graft; Z98.41 Cataract extraction status, right eye; Z87.19 Personal history of other diseases of the digestive system; Z79.01 Long term (current) use of anticoagulants; Z79.899 Other long term (current) drug therapy
CPT/HCPCS: 50010; 50101; 50386; 50398; 51636; 56528; 56531; 62110; 62850; 70005

== ENCOUNTER 2017-09-16 05:57 | Inpatient (IN) | payer OTHER ==
[~2017-09-16] VITALS: Ht 175.3 cm; Wt 72.6 kg
--- NOTE | ~2017-09-16 | EKG ---
[address] [place] [address] ELECTROCARDIOGRAM REPORT Name: MIRIAM GAMING Room #: 356-P ADM IN M.R.#: [id number] Admission: 09/16/17 Attend Phys: Ramin Rodriguez Discharge: Date of : 33 Report #: [id number] THIS REPORT FOR: //name// [facility] ED Test Date: 2017-09-16 Test Time: 06:05:01 Pat Name: MIRIAM GAMING Department: Room: 356 Gender: M Topology Professor: jlherber : 1935 Requested By: Gerardo Salomon Order Number: [id number] MD: Aj Johnston Measurements Intervals [employer] Rate: 97 P: 86 HI: 194 QRS: -62 QRSD: 100 T: 88 QT: 350 QTc: 445 Interpretive Statements Sinus rhythm Paired ventricular premature complexes Left anterior fascicular block Anterior infarct, old Compared to ECG 02/10/2017 09:13:10 Left anterior fascicular block now present Electronically Signed On 09-16-2017 10:58:34 CDT by Aj Johnston [email or web address] <ELECTRONICALLY SIGNED> By: Aj Johntson MD, [facility] 09/16/17 1058 0605 0605 Aj Johnston MD, [facility] /EPI
--- NOTE | ~2017-09-16 | EKG ---
[place] [address] [facility] [place] [address] ELECTROCARDIOGRAM REPORT Name: MIRIAM GAMING Room #: 356-P ADM IN M.R.#: [id number] Admission: 09/16/17 Attend Phys: Ramin Rodriguez Discharge: Date of : 33 Report #: [id number] THIS REPORT FOR: //name// [facility] Test Date: 2017-09-18 Test Time: 06:22:54 Pat Name: MIRIAM GAMING Department: Room: 356 Gender: M Slot Shift Supervisor: KARLEE : 1935 Requested By: Mckinley Canas Order Number: [id number] MD: Aj Johnston Measurements Intervals [place] Rate: 68 P: 76 FL: 173 QRS: 2 QRSD: 89 T: 69 QT: 408 QTc: 434 Interpretive Statements Sinus rhythm Atrial premature complex Poor R wave progression Compared to ECG 09/16/2017 06:05:01 Atrial premature complex(es) now present Ventricular premature complex(es) no longer present Electronically Signed On 09-18-2017 8:49:20 CDT by Aj Johnston [email or web address] <ELECTRONICALLY SIGNED> By: Aj Johnston MD, [facility] 09/18/17 0849 1 1 Aj Johnston MD, [facility] /EPI
--- NOTE | ~2017-09-16 | P ---
[facility] [place] [address] PROCEDURE REPORT Name: MIRIAM GAMING Room #: 221-P [facility] IN M.R.#: [id number] Admission: 09/16/17 Attend Phys: Ramin Rodriguez Discharge: Date of : 33 Report #: [id number] THIS REPORT FOR: //name// CC: Leroy Matias [place] DATE OF SERVICE: 09/22/2017 PROCEDURE PERFORMED: Upper endoscopy with biopsies and esophageal dilation. HISTORY OF PRESENT ILLNESS: The patient is an 82-year-old male who was admitted with a-fib with RVR, who was also complaining of dysphagia, unsure if he has had a previous dilation in the past, but it has been many years ago. He denies any significant heartburn. In general, he was on Xarelto, but that has been held. Plan is for EGD with dilation. DESCRIPTION OF PROCEDURE: The risks and benefits of the procedure were explained to the patient, those risks including but not limited to bleeding, perforation, the risk of sedation. He understood these risks and gave informed consent. Sedation was given using propofol per anesthesia. Next, using a standard Olympus upper endoscope, the scope was placed in the patient's mouth and advanced under direct vision through the esophagus, stomach and into the second portion of the duodenum. The upper esophagus was normal. In the mid esophagus, there was some white plaquing. This may be a reflection of squamous hyperplasia; however, biopsies were also obtained to rule out the possibility of Maria Del Carmen esophagitis or eosinophilic esophagitis. In the distal esophagus, there was mild grade A erosive esophagitis. Also, possible short segment Jacob's about biopsies were obtained. In the stomach, there was a mild diffuse gastritis. No evidence of erosions or ulcerations. Biopsies obtained to rule out H. pylori. The pylorus was normal and patent. The duodenal bulb, first and second portion were all normal. The scope was then brought back up into the patient's stomach and a Savary guidewire was inserted through the scope, leaving the guidewire in place as the scope was then withdrawn. Next, a 48-Thai Savary dilation of the esophagus was then performed without difficulty. The wire and dilator removed. The scope was reintroduced into the patient's stomach. No evidence of mucosal tear was noted after dilation. The scope was then withdrawn and the procedure terminated. The patient tolerated the procedure well. IMPRESSION: 1. Grade A erosive esophagitis. 2. 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 3. Possible Maria Del Carmen versus eosinophilic esophagitis or squamous hyperplasia in [address] [address] PROCEDURE REPORT Name: MIRIAM GAMING Room #: 221-P [facility] IN M.R.#: [id number] Admission: 09/16/17 Attend Phys: Ramin Rodriguez Discharge: Date of : 33 Report #: [id number] the mid esophagus. Biopsies obtained. 4. Gastritis. RECOMMENDATIONS: 1. Await biopsy results. 2. Recommend daily PPI therapy. 3. Observe the patient post-dilation. Thank you for allowing me to participate in his care. By: 1313 0244 Marciano Franklin MD /nt
[2017-09-16 06:25] LABS: ABSOLUTE NEUTROPHILS 4.1 thou/uL (1.4-8.2); BASOPHILS 0.6 % (0.0-2.0); EOSINOPHILS 4.8 % (0.0-3.0); HEMATOCRIT 44.3 % (42.0-52.0); HEMOGLOBIN 14.9 gm/dL (14.0-18.0); LYMPHOCYTES 33.8 % (24.0-44.0); MCH 31.1 pg (26.0-34.0); MCHC 33.7 g/dL (28.0-37.0); MCV 92.3 fL (80.0-100.0); MONOCYTES 7.4 % (1.0-8.0); PLATELET COUNT 224 thou/uL (150-400); POLYS 53.4 % (36.0-66.0); WBC 7.6 thou/uL (4.0-11.0)
[2017-09-16 06:28] LABS: HCO3 28.8 mmol/L (22.0-26.0); PCO2 53.1 mmHg (35.0-45.0); PO2 107.3 mmHg (80.0-100.0); pH 7.352 (7.360-7.450); sO2 97.6 % (92.0-98.0)
[2017-09-16 06:38] LABS: CALCIUM 9.9 mg/dL (8.5-10.1); CREATININE 0.9 mg/dL (0.7-1.3); POTASSIUM 4.4 mmol/L (3.5-5.1)
[2017-09-16 06:44] LABS: ALBUMIN 3.5 g/dL (3.4-5.0); TOTAL BILIRUBIN 0.4 mg/dL (<0.1-1.0); TOTAL PROTEIN 7.6 g/dL (6.4-8.2)
[2017-09-16 07:24] VITALS: BP 173/77
[2017-09-16 07:45] VITALS: BP 137/66
[2017-09-16 08:05] VITALS: BP 158/82
[2017-09-16 11:06] VITALS: BP 155/87
[2017-09-16 15:27] VITALS: BP 136/84
[2017-09-16 19:24] VITALS: BP 148/87
[2017-09-17] VITALS: BP 143/79
[2017-09-17 04:40] VITALS: BP 142/91
[2017-09-17 07:28] VITALS: BP 114/65
[2017-09-17 12:00] VITALS: BP 116/73
[2017-09-17 15:51] VITALS: BP 141/70
[2017-09-17 19:30] VITALS: BP 129/63
[2017-09-18 03:50] VITALS: BP 113/89
[2017-09-18 07:45] VITALS: BP 150/79
[2017-09-18 11:17] VITALS: BP 132/63
[2017-09-18 20:08] VITALS: BP 127/67
[2017-09-19 07:15] VITALS: BP 163/90
[2017-09-19 09:45] VITALS: BP 136/71
[2017-09-20 06:10] VITALS: BP 130/70
[2017-09-20 07:15] VITALS: BP 139/84
[2017-09-20 19:06] VITALS: BP 117/66
[2017-09-21 07:15] VITALS: BP 115/77
[2017-09-21 20:06] VITALS: BP 116/60
[2017-09-22 07:30] VITALS: BP 121/74
[2017-09-22 10:31] VITALS: BP 121/74
[2017-09-22 20:11] VITALS: BP 115/68
[2017-09-23 07:05] VITALS: BP 129/80
[2017-09-23] MEDS ORDERED: DOXYCYCLINE HYC50 MG PO (09:24)
[2017-09-23] MEDS ORDERED: PREDNISONE 20 M20 M1 PO (09:25)
[2017-09-23] MEDS ORDERED: PANTOPRAZOLE SO40 M1 PO (09:25)
[2017-09-23] MEDS ORDERED: CARAFATE 1 GM TA1 G1 PO (09:26)
== END 2017-09-23 15:00 | disposition home health service (06) | DRG 189 ==
LOC: ER 05:57 → EROBS 06:56 → 3W 06:56 → SICU 09-18 13:44
PROVIDERS: Emergency Medicine
PROC: 0DB58ZX Excision of Esophagus, Via Natural or Artificial Opening Endoscopic, Diagnostic (ICD-10-PCS; principal; 2017-09-22)
PROC: 0D758ZZ Dilation of Esophagus, Via Natural or Artificial Opening Endoscopic (ICD-10-PCS; principal; 2017-09-22)
DX: J96.01 Acute respiratory failure with hypoxia (principal); J44.1 Chronic obstructive pulmonary disease with (acute) exacerbation; K22.10 Ulcer of esophagus without bleeding; J44.0 Chronic obstructive pulmonary disease with (acute) lower respiratory infection; K29.70 Gastritis, unspecified, without bleeding; I10 Essential (primary) hypertension; I73.9 Peripheral vascular disease, unspecified; I48.0 Paroxysmal atrial fibrillation; J20.9 Acute bronchitis, unspecified; K59.00 Constipation, unspecified; H02.109 Unspecified ectropion of unspecified eye, unspecified eyelid; H02.009 Unspecified entropion of unspecified eye, unspecified eyelid; R13.10 Dysphagia, unspecified; K21.9 Gastro-esophageal reflux disease without esophagitis; I25.10 Atherosclerotic heart disease of native coronary artery without angina pectoris; B37.9 Candidiasis, unspecified; Z88.8 Allergy status to other drugs, medicaments and biological substances; Z91.018 Allergy to other foods; Z91.02 Food additives allergy status; Z98.42 Cataract extraction status, left eye; Z95.820 Peripheral vascular angioplasty status with implants and grafts; Z87.891 Personal history of nicotine dependence; Z79.899 Other long term (current) drug therapy; Z80.0 Family history of malignant neoplasm of digestive organs
CPT/HCPCS: 10779; 15002; 62110; 62900; 70005

== ENCOUNTER → 2018-04-30 | Outpatient (CLI) | payer OTHER ==
[~2018-04-30] VITALS: Ht 170.2 cm; Wt 66.2 kg
[~2018-04-30] MED LIST changes: +CARAFATE 1 GM TA1 G1 PO; +DOXYCYCLINE HYC50 MG PO; +PANTOPRAZOLE SO40 M1 PO; +PREDNISONE 20 M20 M1 PO
[2018-04-30 08:40] VITALS: BP 144/64
[2018-04-30 08:47] LABS: HEMATOCRIT 43.9 % (42.0-52.0); HEMOGLOBIN 14.8 gm/dL (14.0-18.0); MCHC 33.7 g/dL (28.0-37.0); RBC 4.77 mil/uL (4.50-6.00); RDW 14.6 % (10.5-14.5)
[2018-04-30 08:56] LABS: CALCIUM 8.9 mg/dL (8.5-10.1); CREATININE 0.9 mg/dL (0.7-1.3); POTASSIUM 4.2 mmol/L (3.5-5.1)
--- NOTE | 2018-04-30 09:18 | EKG ---
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: Faviola GEORGES : 1935 Requested By: Leroy Gonzalez Order Number: [id number] MD: Aj Johnston Measurements Intervals [place] Rate: 61 P: 74 VT: 170 QRS: -68 QRSD: 94 T: 74 QT: 436 QTc: 440 Interpretive Statements Sinus rhythm Left anterior fascicular block Anterior infarct, old Compared to ECG 09/18/2017 06:22:54 Atrial premature complex(es) no longer present Electronically Signed On 04-30-2018 9:18:10 CDT by Aj Johnston [email or web address] ��������������������������������������������� <ELECTRONICALLY SIGNED> ���������������������������������������� By: Aj Johnston MD, [facility] ��������������������������������������������� 04/30/18917 0 0 Aj Johnston MD, [facility] /EPI
[2018-04-30 10:03] LABS: PROTIME 10.1 Seconds (9.3-11.4)
--- NOTE | 2018-04-30 15:00 | NUR ---
PT DANGLING AT BEDSIDE. WANTS TO EAT LUNCH BEFORE HE GOES. RIGHT GROIN REMAINS STABLE.
== END | disposition home or self-care (01) ==
LOC: CV 07:51 → SPEC 07:51
PROVIDERS: Internal Medicine Cardiovascular Disease; Nuclear Medicine Nuclear Cardiology
DX: I70.248 Atherosclerosis of native arteries of left leg with ulceration of other part of lower leg (principal); I70.1 Atherosclerosis of renal artery; I10 Essential (primary) hypertension; I25.10 Atherosclerotic heart disease of native coronary artery without angina pectoris; J44.9 Chronic obstructive pulmonary disease, unspecified; Z98.890 Other specified postprocedural states; Z98.41 Cataract extraction status, right eye; Z98.42 Cataract extraction status, left eye; I48.0 Paroxysmal atrial fibrillation; Z79.899 Other long term (current) drug therapy; Z87.891 Personal history of nicotine dependence; Z79.01 Long term (current) use of anticoagulants; Z88.2 Allergy status to sulfonamides; Z88.8 Allergy status to other drugs, medicaments and biological substances

== ENCOUNTER → 2018-12-07 | Outpatient (CLI) | payer OTHER | LOC: RAD 09:14 | DX: M47.816 Spondylosis without myelopathy or radiculopathy, lumbar region (principal); M85.80 Other specified disorders of bone density and structure, unspecified site; Z88.8 Allergy status to other drugs, medicaments and biological substances; Z88.2 Allergy status to sulfonamides; Z95.5 Presence of coronary angioplasty implant and graft ==

== ENCOUNTER → 2019-03-21 | Outpatient (CLI) | payer OTHER | LOC: SJCVCIMAG 07:53 | DX: I70.203 Unspecified atherosclerosis of native arteries of extremities, bilateral legs (principal); I25.10 Atherosclerotic heart disease of native coronary artery without angina pectoris; I10 Essential (primary) hypertension; I48.0 Paroxysmal atrial fibrillation; J43.9 Emphysema, unspecified; E78.00 Pure hypercholesterolemia, unspecified; Z95.5 Presence of coronary angioplasty implant and graft; Z79.51 Long term (current) use of inhaled steroids; Z79.899 Other long term (current) drug therapy; Z87.891 Personal history of nicotine dependence ==

== ENCOUNTER → 2019-06-27 | Outpatient (CLI) | payer OTHER ==
[~2019-06-27] MED LIST changes: +CRESTOR5 MG PO; +PROSCAR 5MG TABL5 M1 PO; +TRELEGY ELLIPT1 EACH INH
== END ==
LOC: SJCVC 12:25
DX: R94.31 Abnormal electrocardiogram [ECG] [EKG] (principal); I21.09 ST elevation (STEMI) myocardial infarction involving other coronary artery of anterior wall; I25.10 Atherosclerotic heart disease of native coronary artery without angina pectoris; E78.00 Pure hypercholesterolemia, unspecified; I73.9 Peripheral vascular disease, unspecified; I10 Essential (primary) hypertension; I48.0 Paroxysmal atrial fibrillation; Z72.0 Tobacco use

== ENCOUNTER 2019-07-04 06:14 | Day surgery (SDC) | payer OTHER ==
[~2019-07-04] VITALS: Ht 172.7 cm; Wt 59.0 kg
--- NOTE | ~2019-07-04 | O ---
[facility] [place] [address] OPERATIVE REPORT Name: MIRIAM GAMING Room #: 150-4 [facility]..#: [id number] Admission: 07/04/19 Attend Phys: Isaac Pickett MD Discharge: Date of : 33 Report #: [id number] THIS REPORT FOR: cc: Bryan Matias MD, Rene P. MD White, William L. MD ~ CC: Bryan Pickett Christopher Rivero MD DATE OF SERVICE: 07/04/2019 PREOPERATIVE DIAGNOSIS: Right orbital cyst. POSTOPERATIVE DIAGNOSIS: Right orbital cyst. PROCEDURE: Right transconjunctival orbitotomy. SURGEON: Isaac Pickett MD. [employer] MACHINE OPERATOR: None. ANESTHESIA: MAC. COMPLICATIONS: None. INDICATIONS FOR SURGERY: This pleasant 84-year-old gentleman has a large mass in his right medial orbit that appears to be an inclusion cyst. The lesion has been observed hoping for resolution presuming it to be benign, but the lesion has enlarged, and enlarged considerably. He presents today for removal of the lesion. Informed consent was obtained to include but not limited to the potential risk for loss of vision, bleeding, infection, double vision, and the potential need for further surgery or treatment. DESCRIPTION OF PROCEDURE: The patient was taken to the operating room where 2% Xylocaine with epinephrine mixed with equal parts 0.75% Marcaine with Wydase was administered transconjunctivally to the right medial orbit. The lateral canthus was additionally anesthetized with the same anesthetic mixture. The patient was then prepped and draped in the usual sterile fashion. A moistened sponge was placed on the left eye while a lid speculum was placed on the right. A corneal light protector was placed over the pupil. The operating microscope was then brought into position and the wound inspected. A radial incision was then laid in the inferomedial portion of the right orbit. The conjunctival edge was rolled inferiorly to allow it to be reidentified later. The dissection was then carried down through Tenon's capsule onto the surface of the medial rectus [address] [address] OPERATIVE REPORT Name: MIRIAM GAMING Room #: 150-4 [facility]..#: [id number] Admission: 07/04/19 Attend Phys: Isaac Pickett MD Discharge: Date of : 33 Report #: [id number] muscle. Care was taken utilizing the operating microscope to avoid vasculature as the dissection was undertaken allowing the cyst to be rotated medially as the globe was displaced laterally. The dissection was carried around the lesion 360 degrees. The insertion of the medial rectus muscle was left intact. The cyst was decompressed at the end to allow access to its deepest most point in the orbit. The entire capsule of the mass, which appeared to be an inclusion cyst, was completely excised as visualized intraoperatively. Hemostasis was achieved with diligent pinpoint use of a high-temp cautery. The defect in the conjunctiva medially was considerably larger than what had been anticipated at the beginning of the case. A conjunctival flap was then developed superiorly and rotated inferiorly. That flap was secured with multiple interrupted 6-0 plain gut sutures with buried knots. The wound was then cleaned and dressed with erythromycin ophthalmic ointment. The patient subsequently transported to the recovery area having tolerated the procedures well with no anesthetic or operative complications being noted. By: 0832 0859 Isaac Pickett MD /nt
[2019-07-04 07:43] VITALS: BP 139/77
--- NOTE | 2019-07-05 16:07 | PATH ---
[facility] [address] [place] [address] PATHOLOGY RPT PROCEDURE Name: VEL CHAVEZ Room #: DEP [facility] M.R.#: [id number] Admission: 07/04/19 Date of : 33 Discharge: 07/04/19 Report #: [id number] Path Case #: [id number] [facility] Accession Number: [id number] . 01 Material submitted: . orbit - RIGHT ORBITAL CYST. Modifiers: right . 01 Clinical history: . Neoplasm right orbit . 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 - Moderate congestion along with chronic inflammation as well as lymphoid aggregates. - Scattered foci of conjunctival epithelium showing mild acute inflammation. - Negative for dysplasia or malignancy. (IUV:adilene; 07/05/2019) MBR 07/05/2019 1413 Local . 02 Electronically signed: . Soumya Ariza MD, Pathologist NPI- [id number] . 01 Gross description: . The specimen is received in formalin, labeled "Vel Chavez, right orbital cyst". Received is a segment of pale jackson membranous tissue measuring 1.3 x 0.3 x 0.2 cm in greatest dimensions. The specimen is committed entirely in cassette A1. (CAA; 07/04/2019) QA/QA 07/04/2019 1455 Local . 02 Pathologist provided ICD-10: H05.811, H05.00, H05.10 . 02 CPT . 087111 Specimen Comment: A courtesy copy of this report has been sent to [phone] Specimen Comment: Report sent to Performed at: [address] [id number] MD Grzegorz Walters MD Phone: [phone] Performed at: 02 [facility] [address] [place] [address] PATHOLOGY RPT PROCEDURE Name: VEL CHAVEZ Room #: DEP [facility] M.R.#: [id number] Admission: 07/04/19 Date of : 33 Discharge: 07/04/19 Report #: [id number] Path Case #: [id number] [address] [place], [place] [id number] MD Soumya Ariza MD Phone: [phone]
== END 2019-07-04 09:21 | disposition home or self-care (01) ==
LOC: OR 06:14 → TBA 06:19 → OR 08:03
DX: H05.811 Cyst of right orbit (principal); H05.00 Unspecified acute inflammation of orbit; H05.10 Unspecified chronic inflammatory disorders of orbit; I10 Essential (primary) hypertension; I48.91 Unspecified atrial fibrillation; J43.9 Emphysema, unspecified; I73.9 Peripheral vascular disease, unspecified; Z98.41 Cataract extraction status, right eye; Z98.42 Cataract extraction status, left eye; Z96.1 Presence of intraocular lens; Z98.890 Other specified postprocedural states; Z79.899 Other long term (current) drug therapy; Z87.891 Personal history of nicotine dependence; Z79.01 Long term (current) use of anticoagulants
CPT/HCPCS: 50010; 50101; 50386; 50398; 51636; 56531; 62110; 62850; 70005

== ENCOUNTER → 2019-09-26 | Outpatient (CLI) | payer OTHER | LOC: SJCVCIMAG 06:29 | PROVIDERS: ATTEND Internal Medicine Cardiovascular Disease | DX: R94.31 Abnormal electrocardiogram [ECG] [EKG] (principal); I65.23 Occlusion and stenosis of bilateral carotid arteries; I77.89 Other specified disorders of arteries and arterioles; I25.10 Atherosclerotic heart disease of native coronary artery without angina pectoris; I10 Essential (primary) hypertension; I48.0 Paroxysmal atrial fibrillation; J44.9 Chronic obstructive pulmonary disease, unspecified; E78.00 Pure hypercholesterolemia, unspecified ==

== ENCOUNTER → 2019-11-05 | Outpatient (CLI) | payer OTHER | LOC: SJCVCIMAG 12:10 | PROVIDERS: ATTEND Internal Medicine Cardiovascular Disease | DX: I49.3 Ventricular premature depolarization (principal); I25.10 Atherosclerotic heart disease of native coronary artery without angina pectoris; E78.5 Hyperlipidemia, unspecified; J44.9 Chronic obstructive pulmonary disease, unspecified; I10 Essential (primary) hypertension; Z79.899 Other long term (current) drug therapy; Z87.891 Personal history of nicotine dependence; Z79.01 Long term (current) use of anticoagulants ==

== ENCOUNTER → 2020-01-21 | Outpatient (CLI) | payer OTHER | LOC: RAD 15:06 | PROVIDERS: ATTEND Internal Medicine | DX: J43.9 Emphysema, unspecified (principal); J98.11 Atelectasis ==

== ENCOUNTER → 2020-04-14 | Outpatient (CLI) | payer OTHER | LOC: RAD 10:52 | PROVIDERS: ATTEND Family Medicine | DX: S80.12XA Contusion of left lower leg, initial encounter (principal); M79.672 Pain in left foot; M25.572 Pain in left ankle and joints of left foot; M25.472 Effusion, left ankle; X58.XXXA Exposure to other specified factors, initial encounter; Y92.89 Other specified places as the place of occurrence of the external cause; Y93.89 Activity, other specified; Y99.8 Other external cause status ==

== ENCOUNTER → 2020-04-27 | Outpatient (CLI) | payer OTHER | LOC: HYPER 12:29 | PROVIDERS: ATTEND Emergency Medicine | DX: S80.12XA Contusion of left lower leg, initial encounter (principal); R60.0 Localized edema; E78.00 Pure hypercholesterolemia, unspecified; I73.89 Other specified peripheral vascular diseases; I25.10 Atherosclerotic heart disease of native coronary artery without angina pectoris; I10 Essential (primary) hypertension; I48.91 Unspecified atrial fibrillation; J44.9 Chronic obstructive pulmonary disease, unspecified; Z85.118 Personal history of other malignant neoplasm of bronchus and lung; Z87.891 Personal history of nicotine dependence; Z85.828 Personal history of other malignant neoplasm of skin; Z95.820 Peripheral vascular angioplasty status with implants and grafts; W22.8XXA Striking against or struck by other objects, initial encounter; Y93.89 Activity, other specified; Y92.89 Other specified places as the place of occurrence of the external cause; Y99.8 Other external cause status ==

== ENCOUNTER → 2020-05-04 | Outpatient (CLI) | payer OTHER | LOC: HYPER 11:04 | PROVIDERS: ATTEND Emergency Medicine | DX: S80.12XD Contusion of left lower leg, subsequent encounter (principal); L84 Corns and callosities; R60.0 Localized edema; E78.00 Pure hypercholesterolemia, unspecified; I73.89 Other specified peripheral vascular diseases; I25.10 Atherosclerotic heart disease of native coronary artery without angina pectoris; I10 Essential (primary) hypertension; I48.91 Unspecified atrial fibrillation; J44.9 Chronic obstructive pulmonary disease, unspecified; Z85.118 Personal history of other malignant neoplasm of bronchus and lung; Z87.891 Personal history of nicotine dependence; Z85.828 Personal history of other malignant neoplasm of skin; Z95.820 Peripheral vascular angioplasty status with implants and grafts; W22.8XXD Striking against or struck by other objects, subsequent encounter ==

== ENCOUNTER → 2020-05-18 | Outpatient (CLI) | payer OTHER | LOC: HYPER 11:47 | PROVIDERS: ATTEND Emergency Medicine | DX: S80.12XD Contusion of left lower leg, subsequent encounter (principal); L84 Corns and callosities; R60.0 Localized edema; E78.00 Pure hypercholesterolemia, unspecified; I73.89 Other specified peripheral vascular diseases; I25.10 Atherosclerotic heart disease of native coronary artery without angina pectoris; I10 Essential (primary) hypertension; I48.91 Unspecified atrial fibrillation; J44.9 Chronic obstructive pulmonary disease, unspecified; N40.0 Benign prostatic hyperplasia without lower urinary tract symptoms; Z85.118 Personal history of other malignant neoplasm of bronchus and lung; Z87.891 Personal history of nicotine dependence; Z85.828 Personal history of other malignant neoplasm of skin; Z95.820 Peripheral vascular angioplasty status with implants and grafts; W22.8XXD Striking against or struck by other objects, subsequent encounter ==

== ENCOUNTER → 2020-06-01 | Outpatient (CLI) | payer OTHER | LOC: HYPER 13:12 | PROVIDERS: ATTEND Emergency Medicine | DX: S80.12XD Contusion of left lower leg, subsequent encounter (principal); L84 Corns and callosities; R60.0 Localized edema; E78.00 Pure hypercholesterolemia, unspecified; I73.89 Other specified peripheral vascular diseases; I25.10 Atherosclerotic heart disease of native coronary artery without angina pectoris; I10 Essential (primary) hypertension; I48.91 Unspecified atrial fibrillation; J44.9 Chronic obstructive pulmonary disease, unspecified; N40.0 Benign prostatic hyperplasia without lower urinary tract symptoms; Z85.118 Personal history of other malignant neoplasm of bronchus and lung; Z87.891 Personal history of nicotine dependence; Z85.828 Personal history of other malignant neoplasm of skin; Z95.820 Peripheral vascular angioplasty status with implants and grafts; W22.8XXD Striking against or struck by other objects, subsequent encounter ==

== ENCOUNTER → 2020-06-15 | Outpatient (CLI) | payer OTHER | LOC: HYPER 12:50 | PROVIDERS: ATTEND Emergency Medicine | DX: S81.802D Unspecified open wound, left lower leg, subsequent encounter (principal); L97.822 Non-pressure chronic ulcer of other part of left lower leg with fat layer exposed; I73.89 Other specified peripheral vascular diseases; R60.0 Localized edema; J44.9 Chronic obstructive pulmonary disease, unspecified; I25.10 Atherosclerotic heart disease of native coronary artery without angina pectoris; I10 Essential (primary) hypertension; I48.91 Unspecified atrial fibrillation; N40.0 Benign prostatic hyperplasia without lower urinary tract symptoms; E78.00 Pure hypercholesterolemia, unspecified; Z85.118 Personal history of other malignant neoplasm of bronchus and lung; Z85.828 Personal history of other malignant neoplasm of skin; Z87.891 Personal history of nicotine dependence; Z79.899 Other long term (current) drug therapy; W22.8XXD Striking against or struck by other objects, subsequent encounter ==

== ENCOUNTER → 2020-06-29 | Outpatient (CLI) | payer OTHER | LOC: HYPER 11:25 | PROVIDERS: ATTEND Emergency Medicine | DX: S80.821A Blister (nonthermal), right lower leg, initial encounter (principal); S80.12XD Contusion of left lower leg, subsequent encounter; L97.822 Non-pressure chronic ulcer of other part of left lower leg with fat layer exposed; I73.89 Other specified peripheral vascular diseases; R60.0 Localized edema; J44.9 Chronic obstructive pulmonary disease, unspecified; I25.10 Atherosclerotic heart disease of native coronary artery without angina pectoris; I10 Essential (primary) hypertension; I48.91 Unspecified atrial fibrillation; N40.0 Benign prostatic hyperplasia without lower urinary tract symptoms; E78.00 Pure hypercholesterolemia, unspecified; Z85.118 Personal history of other malignant neoplasm of bronchus and lung; Z85.828 Personal history of other malignant neoplasm of skin; Z87.891 Personal history of nicotine dependence; W22.8XXD Striking against or struck by other objects, subsequent encounter; X58.XXXA Exposure to other specified factors, initial encounter; Y93.89 Activity, other specified; Y92.89 Other specified places as the place of occurrence of the external cause; Y99.8 Other external cause status ==

== ENCOUNTER → 2020-11-06 | Outpatient (CLI) | payer OTHER | LOC: SJCVCIMAG 10:39 | PROVIDERS: ATTEND Internal Medicine Cardiovascular Disease | DX: R94.31 Abnormal electrocardiogram [ECG] [EKG] (principal); I44.60 Unspecified fascicular block; I70.203 Unspecified atherosclerosis of native arteries of extremities, bilateral legs; M79.89 Other specified soft tissue disorders; R07.9 Chest pain, unspecified; I10 Essential (primary) hypertension; E78.00 Pure hypercholesterolemia, unspecified; I25.10 Atherosclerotic heart disease of native coronary artery without angina pectoris; I77.9 Disorder of arteries and arterioles, unspecified; J44.9 Chronic obstructive pulmonary disease, unspecified; M79.604 Pain in right leg; R06.02 Shortness of breath; I48.91 Unspecified atrial fibrillation; I65.23 Occlusion and stenosis of bilateral carotid arteries; Z85.828 Personal history of other malignant neoplasm of skin; Z82.49 Family history of ischemic heart disease and other diseases of the circulatory system; Z87.891 Personal history of nicotine dependence; Z88.2 Allergy status to sulfonamides; Z88.1 Allergy status to other antibiotic agents; Z91.018 Allergy to other foods; Z79.899 Other long term (current) drug therapy ==

== ENCOUNTER → 2020-11-09 | Outpatient (CLI) | payer OTHER ==
[~2020-11-09] VITALS: Ht 170.2 cm; Wt 60.0 kg
[2020-11-09 07:32] LABS: HEMATOCRIT 42.3 % (42.0-52.0); MCHC 33.1 g/dL (28.0-37.0); MCV 90.5 fL (80.0-100.0); RBC 4.67 mil/uL (4.50-6.00); RDW 14.3 % (10.5-14.5); WBC 7.3 thou/uL (4.0-11.0)
[2020-11-09 07:36] LABS: ANION GAP < 0 mmol/L (7-16); BUN 16 mg/dL (7-18); CALCIUM 8.9 mg/dL (8.5-10.1); CHLORIDE 107 mmol/L (98-107); CO2 34 mmol/L (21-32); GLUCOSE 95 mg/dL (74-106); POTASSIUM 3.9 mmol/L (3.5-5.1); SODIUM 140 mmol/L (136-145)
[2020-11-09 07:37] VITALS: BP 169/79
--- NOTE | 2020-11-09 17:13 | CATHLAB ---
[facility] Justino Ruggiero [employer] [place] [address] INVASIVE PROCEDURE REPORT Name: MIRIAM GAMING V Room #: REG HERMES Dayanna.#: [id number] Admission: 11/09/20 Attend Phys: Kan Martinez MD Discharge: Date of : 31 Report #: [id number] THIS REPORT FOR: cc: Bryan Matias MD, Rene P. MD Mancuso, Gerald M. MD [facility] ~ APPROVED REPORT Study performed: 11/09/2020 09:53:30 Patient Details Patient Status: Out-Patient Room #: The patient is a 85 year-old male Event Personnel Leroy Gonzalez Ironing Machine Operator, Kaden Champion RN RN, [place] RTR Scrub, Austin Larkin Monitor Procedures Performed Left Heart Cath w/or w/o Coronaries [id number] [facility] Hemostasis w/ Mynx Indication Positive stress test Procedure Narrative A 6F BRITE TIP sheath was inserted into the LFA^. Coronary angiography was performed using coronary diagnostic catheters. The right coronary system was accessed and visualized with a JR4 catheter. The left coronary system was accessed and visualized with a JL4 catheter. The left ventricle was accessed and visualized with a PIGTAIL catheter. Left ventricular/Aortic Valve gradient assessed via catheter pullback. Left ventriculogram was performed in 30 degree projection. Closure device was deployed with a 6 Fr MYNXGRIP 6/7F [id number]. The patient tolerated the procedure well and there were no complications associated with the procedure. There was no hematoma. Intraoperative Conscious Sedation Sedation start time: 08:28 Case end Time: 10:40 Fentanyl 100 mcg Versed 1.5 mg Conscious sedation is a combined total for peripheral procedures and left heart cath. [facility] [address] [place] [address] INVASIVE PROCEDURE REPORT Name: LOANBRITNIMIRIAM V Room #: REG [facility]#: [id number] Admission: 11/09/20 Attend Phys: Kan Martinez, Discharge: Date of : 31 Report #: [id number] Fluoro and dose are a combined total for peripheral procedures and left heart cath. Omnipaque contrast for left heart cath is 50ml. Visipaque was used for the peripheral procedures. Fluoro Time: 14.59 minutes Dose: DAP 82782.63 cGycm2 1446 mGy Contrast Type and Amount: Visipaque 133 ml Hemodynamics The aortic pressure is 214/67 mmHg with a mean of 121 mmHg. The left ventricular pressure is 210/11 mmHg with a mean of mmHg. The left ventricular end diastolic pressure is 29 mmHg. PCI Technique Lesion Percutaneous coronary intervention was performed on the Right Renal. PCI Technique Lesion 2 Percutaneous Coronary Intervention was performed on the Prox sup femoral. Conclusion #1 Normal left ventricular size and systolic function EF 60%. #2 left main mildly disease giving rise to LAD and circumflex. Mild calcification is noted. #3 is moderately calcified proximal and mid. Long eccentric lesion 6070% proximal and a more focal 70-75 at the diagonal takeoff. Diffuse disease does not appear to be flow-limiting or significantly progressed from prior exam. #4 circumflex OM is smaller calcified. A small first OM branch has a high-grade lesion would not really be amenable to intervention 1.0 caliber vessel. This is not significantly progressed or changed. #5 large dominant right coronary artery which is widely patent and minimal calcification. This is a large vessel with extensive distribution. Recommendations and plan: Continue aggressive risk factor modification. Would not recommend intervention currently on these calcified smaller diffusely diseased vessels. Will have close follow-up. Aggressive medical therapy. <ELECTRONICALLY SIGNED> By: Leroy Gonzalez MD, FACC 11/09/201712 12 12 Leroy Gonzalez MD, FACC /INF
== END | disposition home or self-care (01) ==
LOC: CATH 06:21
PROVIDERS: ATTEND Nuclear Medicine Nuclear Cardiology
DX: R94.39 Abnormal result of other cardiovascular function study (principal); I25.10 Atherosclerotic heart disease of native coronary artery without angina pectoris; I70.211 Atherosclerosis of native arteries of extremities with intermittent claudication, right leg; I15.0 Renovascular hypertension; I70.1 Atherosclerosis of renal artery; M79.604 Pain in right leg; M79.605 Pain in left leg; I10 Essential (primary) hypertension; E78.5 Hyperlipidemia, unspecified; J44.9 Chronic obstructive pulmonary disease, unspecified; I48.91 Unspecified atrial fibrillation; Z98.890 Other specified postprocedural states; Z79.899 Other long term (current) drug therapy; Z79.01 Long term (current) use of anticoagulants; Z87.891 Personal history of nicotine dependence; Z88.8 Allergy status to other drugs, medicaments and biological substances; Z88.2 Allergy status to sulfonamides

== ENCOUNTER 2021-02-18 09:50 | Inpatient (IN) | payer OTHER ==
[~2021-02-18] VITALS: Ht 175.3 cm; Wt 60.0 kg
[2021-02-18 09:51] VITALS: BP 99/78
[2021-02-18 10:13] LABS: BASOPHILS 0.2 % (0.0-2.0); HEMATOCRIT 43.6 % (42.0-52.0); HEMOGLOBIN 14.1 gm/dL (14.0-18.0); LYMPHOCYTES 6.7 % (24.0-44.0); MCH 29.6 pg (26.0-34.0); MCHC 32.3 g/dL (28.0-37.0); MCV 91.7 fL (80.0-100.0); MONOCYTES 4.1 % (1.0-8.0); PLATELET COUNT 285 thou/uL (150-400); RBC 4.76 mil/uL (4.50-6.00); WBC 15.8 thou/uL (4.0-11.0)
[2021-02-18 10:28] LABS: CALCIUM 9.1 mg/dL (8.5-10.1); CREATININE 1.2 mg/dL (0.7-1.3); POTASSIUM 4.2 mmol/L (3.5-5.1)
[2021-02-18 10:38] LABS: ALBUMIN 3.3 g/dL (3.4-5.0); TOTAL BILIRUBIN 0.7 mg/dL (0.2-1.0)
[2021-02-18 10:58] LABS: BE(vivo) -1.3 mmol/L (-2 to +3); HCO3 23.3 mmol/L (22.0-26.0); PCO2 38.9 mmHg (35.0-45.0); PO2 84.8 mmHg (80.0-100.0); pH 7.396 (7.360-7.450); sO2 96.4 % (92.0-98.0)
[2021-02-18 13:21] VITALS: BP 141/69
[2021-02-18 22:52] VITALS: BP 146/76
[2021-02-18 23:57] VITALS: BP 150/73
[2021-02-19 03:52] VITALS: BP 140/63
[2021-02-19 08:00] VITALS: BP 158/77
--- NOTE | 2021-02-19 11:15 | EKG ---
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: TALI : 1935 Requested By: Eric Nunes Order Number: [id number] MD: Aj Johnston Measurements Intervals Taylor Rate: 106 P: 82 MO: 159 QRS: -66 QRSD: 101 T: 76 QT: 338 QTc: 449 Interpretive Statements Sinus tachycardia Multiple ventricular premature complexes Inferior infarct, old Poor R wave progression Baseline wander multiple leads Compared to ECG 04/30/2018 08:31:21 Ventricular premature complex(es) now present Electronically Signed On 02-19-2021 11:15:05 BIZTALK CONSULTANT by Aj Johnston [email or web address] <ELECTRONICALLY SIGNED> By: Aj Johnston MD, [facility] 02/19/21 1115 1008 1008 Aj Johnston MD, [facility] /EPI
[2021-02-19 12:30] VITALS: BP 129/77
[2021-02-19 16:30] VITALS: BP 152/84
[2021-02-19 20:00] VITALS: BP 156/80
[2021-02-20] VITALS: BP 140/49
[2021-02-20 04:00] VITALS: BP 114/56
[2021-02-20 08:30] VITALS: BP 115/65
[2021-02-20 13:00] VITALS: BP 130/85
[2021-02-20 16:00] VITALS: BP 115/72
[2021-02-20 19:10] LABS: URINE BILIRUBIN NEGATIVE (Negative); URINE BLOOD 1+ (Negative); URINE CLARITY CLEAR; URINE COLOR YELLOW; URINE GLUCOSE-RANDOM* 1+ (Negative); URINE KETONES TRACE (Negative); URINE LEUKOCYTES-REFLEX TRACE (Negative); URINE NITRITE-REFLEX NEGATIVE (Negative); URINE PROTEIN (DIPSTICK) NEGATIVE (Negative); URINE SPECIFIC GRAVITY 1.025 (1.005-1.035); URINE UROBILINOGEN 0.2 E.U./dl (0.2-1.0)
[2021-02-20 19:38] LABS: BACTERIA-REFLEX None Seen /HPF (None Seen); CASTS None Seen /LPF (None Seen); CRYSTALS None Seen /LPF (None Seen); MUCUS None Seen strn/LPF (None Seen); SQUAMOUS None Seen /LPF (0-3); URINE RBC 3-10 Few /HPF (NONE SEEN); URINE WBC-REFLEX None Seen /HPF (0-5)
[2021-02-20 20:00] VITALS: BP 110/67
[2021-02-21 04:00] VITALS: BP 120/78
[2021-02-21 09:11] VITALS: BP 163/105
[2021-02-21 12:00] VITALS: BP 173/97
[2021-02-21 23:00] VITALS: BP 148/86
[2021-02-22 05:17] VITALS: BP 148/86
[2021-02-22 05:30] VITALS: BP 184/91
[2021-02-22 06:53] LABS: HEMATOCRIT 39.4 % (42.0-52.0); MCH 30.2 pg (26.0-34.0); MCHC 32.9 g/dL (28.0-37.0); MCV 91.9 fL (80.0-100.0); RBC 4.29 mil/uL (4.50-6.00); WBC 5.1 thou/uL (4.0-11.0)
[2021-02-22 07:42] LABS: ALBUMIN 2.6 g/dL (3.4-5.0); CALCIUM 8.8 mg/dL (8.5-10.1)
[2021-02-22 07:48] LABS: POTASSIUM 2.8 mmol/L (3.5-5.1)
[2021-02-22 08:30] VITALS: BP 153/80
[2021-02-22 11:30] VITALS: BP 142/68
[2021-02-22 15:50] VITALS: BP 152/72
[2021-02-22 20:15] VITALS: BP 159/82
[2021-02-23 03:49] LABS: ALBUMIN 2.5 g/dL (3.4-5.0); CALCIUM 8.5 mg/dL (8.5-10.1); CREATININE 0.8 mg/dL (0.7-1.3); PHOSPHORUS 2.1 mg/dL (2.5-4.9)
[2021-02-23 04:08] LABS: POTASSIUM 4.1 mmol/L (3.5-5.1)
[2021-02-23 04:45] VITALS: BP 148/75
[2021-02-23 09:21] VITALS: BP 146/62
[2021-02-23 16:03] VITALS: BP 147/73
[2021-02-23 20:15] VITALS: BP 154/70
[2021-02-24 04:45] VITALS: BP 168/81
[2021-02-24 08:00] VITALS: BP 146/80
[2021-02-24 16:00] VITALS: BP 181/81
[2021-02-24 20:45] VITALS: BP 143/61
[2021-02-25 04:45] VITALS: BP 151/54
[2021-02-25] MEDS ORDERED: CEFUROXIME500 MG PO (09:05)
[2021-02-25] MEDS ORDERED: PREDNISONE 20 M20 M1 PO (09:06)
[2021-02-25 09:19] VITALS: BP 146/77
[2021-02-25 12:26] VITALS: BP 146/77
[2021-02-25 15:04] VITALS: BP 146/77
--- NOTE | 2021-03-15 16:13 | HC ---
[facility] [place] [address] CONSULTATION Name: MIRIAM GAMING V Room #: 214-P [facility] IN M.R.#: [id number] Admission: 02/18/21 Attend Phys: Ramin Carlos Michael Discharge: 02/25/21 Date of : 31 Report #: [id number] THIS REPORT FOR: cc: Bryan Matias MD, Rene P. MD Althoff, Jeffrey R. MD ~ DATE OF SERVICE: 02/24/2021 CHIEF COMPLAINT: Gluteal pressure ulceration. HISTORY OF PRESENT ILLNESS: This is an 86-year-old male patient with a history of COPD, who presented to the Emergency Department with increasing shortness of breath and some confusion. He had a negative COVID test, but his symptoms were worsening and he has been admitted with acute on chronic hypoxemic respiratory failure with a very severe COPD. He notes pain in gluteal ulceration. I have been asked to see him in this regard. PAST MEDICAL HISTORY: Positive for history of severe COPD, atrial fibrillation, peripheral arterial disease, status post bilateral iliac and left superficial femoral artery stents, carotid artery disease. SOCIAL HISTORY: The patient is a previous smoker. No history of alcohol use. FAMILY HISTORY: Noncontributory. MEDICATIONS: At this time include albuterol, Plavix, Cardizem, Trelegy, Bystolic, Xarelto, Crestor. ALLERGIES: NUTS, CANTALOUPE MELONS, SULFA, CITRUS, LEVAQUIN AND TOMATOES. FAMILY HISTORY: Noncontributory. REVIEW OF SYSTEMS: Somewhat limited due to some confusion on the patient's part. He does note severe pain in the left gluteal region and some generalized weakness. Others systems are either unobtainable or negative and/or included in the history of present illness. PHYSICAL EXAMINATION: VITAL SIGNS: The patient's vital at this time include pulse rate 66, respiratory rate of 16, blood pressure 146/80. GENERAL: This is a chronically ill-appearing male patient who appears to be in moderate discomfort. HEAD: Normocephalic. NECK: Supple. LUNGS: Diminished. HEART: Irregular. [facility] [address] [place] [address] CONSULTATION Name: LOANBRITNIMIRIAM V Room #: 214-P [facility] IN M.R.#: [id number] Admission: 02/18/21 Attend Phys: Ramin Rodriguez Discharge: 02/25/21 Date of : 31 Report #: [id number] ABDOMEN: Soft, nontender. GENITOURINARY: Examination of the sacral-gluteal region demonstrates what appears to be stage 3 pressure ulcerations with some surrounding erythema to the left gluteal region, the area is tender, it is relatively shallow, does not appear to be infected. EXTREMITIES: Demonstrate trace edema. NEUROLOGIC: The patient is awake and alert and a little bit confused. LABORATORY STUDIES: Include white blood cell count 5.1 with a hemoglobin of 13.0, sodium 143, potassium 4.1, chloride 107, CO2 of 31, BUN 24, creatinine 0.8, glucose 162, albumin is 2.5. CLINICAL IMPRESSION: 1. Stage IV pressure ulcer to the left gluteal region. 2. Acute on chronic hypoxic respiratory failure with exacerbation. 3. Severe chronic obstructive pulmonary disease. 4. History of atrial fibrillation. 5. Moderate protein-calorie malnutrition. RECOMMENDATIONS: At this point in time, we will order a low air loss pump for his mattress in his bed. He will need q.2 hour turning and positioning. We will recommend topical Silvadene, morphine cream mixed with barrier cream to be applied q.6 hours and as needed. He will need to have aggressive nutritional support to maximize wound healing. I appreciate being asked to see him in consultation. <ELECTRONICALLY SIGNED> By: Chi Bui MD 03/15/21 1613 [id number] Chi Bui MD /nt
== END 2021-02-25 16:49 | disposition home health service (06) | DRG 871 ==
LOC: ER 09:50 → TBACV 19:40 → 2N 19:40 → EROBS 02-19 08:45 → 2N 02-22 05:19
PROVIDERS: Emergency Medicine; ADMIT Hospitalist; ATTEND Hospitalist
PROC: 05HB33Z Insertion of Infusion Device into Right Basilic Vein, Percutaneous Approach (ICD-10-PCS; principal; 2021-02-23)
DX: A41.9 Sepsis, unspecified organism (principal); J18.9 Pneumonia, unspecified organism; L89.324 Pressure ulcer of left buttock, stage 4; J96.21 Acute and chronic respiratory failure with hypoxia; J44.1 Chronic obstructive pulmonary disease with (acute) exacerbation; N17.9 Acute kidney failure, unspecified; L03.113 Cellulitis of right upper limb; E44.0 Moderate protein-calorie malnutrition; J44.0 Chronic obstructive pulmonary disease with (acute) lower respiratory infection; Z68.1 Body mass index [BMI] 19.9 or less, adult; I50.32 Chronic diastolic (congestive) heart failure; Z20.822 Contact with and (suspected) exposure to COVID-19; I48.0 Paroxysmal atrial fibrillation; I73.9 Peripheral vascular disease, unspecified; R31.9 Hematuria, unspecified; E03.9 Hypothyroidism, unspecified; I25.5 Ischemic cardiomyopathy; I11.0 Hypertensive heart disease with heart failure; E78.5 Hyperlipidemia, unspecified; I77.9 Disorder of arteries and arterioles, unspecified; R53.81 Other malaise; L89.159 Pressure ulcer of sacral region, unspecified stage; G47.33 Obstructive sleep apnea (adult) (pediatric); E78.00 Pure hypercholesterolemia, unspecified; Z96.1 Presence of intraocular lens; Z79.01 Long term (current) use of anticoagulants; Z98.42 Cataract extraction status, left eye; Z98.41 Cataract extraction status, right eye; Z95.820 Peripheral vascular angioplasty status with implants and grafts; Z79.899 Other long term (current) drug therapy; Z79.02 Long term (current) use of antithrombotics/antiplatelets; Z79.51 Long term (current) use of inhaled steroids; Z88.1 Allergy status to other antibiotic agents; Z91.018 Allergy to other foods; Z88.2 Allergy status to sulfonamides; Z91.09 Other allergy status, other than to drugs and biological substances; Z87.891 Personal history of nicotine dependence
CPT/HCPCS: 10081; 10194; 27000